=== PATIENT | female | born 1975 | race Caucasian/White ===

== ENCOUNTER 2022-02-11 12:21 | Inpatient (IN) | payer BC, SELFPAY ==
[2022-02-11] VITALS (12 sets, daily range): BP systolic 94–132; BP diastolic 59–95; PULSE 98–106; RESP 16–20; TEMP 36.5–36.7; O2SAT 96–99; BMI 25.7; BMI 26.2
--- NOTE | 2022-02-11 13:00 | ED_ITS ---
HPI - General Adult General Date Seen: 02/11/22 Chief complaint: Abdominal Pain Stated complaint: Distended abdomen Time Seen by Provider: 02/11/22 12:23 Source: patient History of Present Illness HPI narrative: Patient is a 46-year-old woman who presents with abdominal pain and distension which started about 5 days ago. She tells me that about 2 weeks ago, her daughter noticed that her eyes were a little bit yellow, and about 1 week ago as a result she stop drinking. She says that she has drunk alcohol fairly regularly for quite some time, but over the past 2 years she has been drinking much more heavily. She says that she has been able to stop drinking on her own, but has always restarted. She has never been through alcohol treatment, and does not consider that something that she would need. She developed pain on both sides of her abdomen which has been moderate in intensity and constant for the past 5 days or so. It feels worse when she lays down on her side, and also worse when she walks. She has not had any nausea, no vomiting. She has had some diarrhea which has been nonbloody. She thinks this is because she has stopped drinking. Her appetite has been decreased. She does not think she has had any fevers although she has felt hot. She has not felt short of breath although it is difficult to take a deep breath because her abdomen feels full. She has not noted any swelling in her legs currently although that has been a problem in the past. She has not taken anything for pain. She has noticed that her abdomen seems bloated and bulges out at the sides. This is never happened before. She does not smoke cigarettes and denies any other substance use. She has a history of anxiety, denies any other significant medical history. Related Data Home Medications Medication Instructions Recorded Confirmed No Known Home Medications 02/11/22 02/11/22 Allergies Allergy/AdvReac Type Severity Reaction Status Date / Time Penicillins Allergy Hives Verified 02/11/22 12:39 Review of Systems Status of ROS: Reports: 10 or more systems reviewed and unremarkable except as noted in History and below [facility] Social History Highest level of school completed/degree received: high school graduate Smoking Status: Former smoker Do you use any of these nicotine containing products: None Second hand tobacco smoke exposure: No How often do you have a drink containing alcohol: 4 or more times a week Alcohol type details: last drink 02/03/22 How many standard drinks containing alcohol do you have on a typical day: 5 or 6 How often do you have six or more drinks on one occasion: Weekly AUDIT-C Alcohol total score: 9 Non-prescribed substance use: denies use Caffeine: Yes (rare) service: No Exam Narrative: Exam Narrative: Vital signs as noted above. In general, an alert, nontoxic woman. She looks fatigued, she is lying on her side. Head: Normocephalic, atraumatic. Eyes: Pupils are equal reactive. Extraocular movements are full. Conjunctivae are obviously icteric. ENT: Mucous membranes are slightly dry. Neck: Supple without lymphadenopathy. Heart: Regular rate and rhythm. No murmur or rub. Lungs: Clear bilaterally. No increased work of breathing, crackles or wheezes. Abdomen: Soft and mildly distended, mild diffuse tenderness without rebound guarding or rigidity. Liver edge palpable at mid abdomen. Ascites. Extremities: Well perfused. No edema. No calf tenderness. Pulses intact. Neurologic: Patient is alert and oriented to person and place. Speech is fluent. Face is symmetric. Moves all extremities equally. Affect: Normal. Skin: Warm and dry. Well perfused. Jaundiced. Const: Vital Signs, click to edit/add: Vital Signs - 24 hr 02/11/22 12:33 02/11/22 13:00 02/11/22 13:30 Temperature 97.7 F Pulse Rate [Left P ulse Oximeter] 99 101 H 100 Respiratory Rate 20 20 20 Blood Pressure [Ri ght Upper Arm] 125/81 125/87 117/88 Pulse Oximetry 98 98 98 02/11/22 14:30 02/11/22 15:00 02/11/22 15:30 Temperature Pulse Rate [Left P ulse Oximeter] 98 98 98 Respiratory Rate 20 20 20 Blood Pressure [Ri ght Upper Arm] 129/95 H 120/80 132/92 H Pulse Oximetry 97 98 98 02/11/22 16:00 Temperature Pulse Rate [Left P ulse Oximeter] 98 Respiratory Rate 20 Blood Pressure [Ri ght Upper Arm] 110/76 Pulse Oximetry 98 Documenting provider has reviewed patient's vital signs: yes Course Course Hospital Course: Examination with the bedside ultrasound confirms an enlarged liver, ascites. I discussed with her that these are likely signs that her liver is not tolerating her alcohol use, and that with continued drinking her liver will most certainly fail entirely. At this time, she verbalizes that she does not plan to drink anymore. Labs are pending, IV will be established. She does have some mild abdominal tenderness. She is afebrile here. Consideration for spontaneous bacterial peritonitis verses ascites. Given her alcohol use, liver failure is likely secondary to alcohol. No history to suggest Tylenol or other medication cause. Liver is significantly enlarged on ultrasound. Depending on labs, will consider other possible causes such as hepatitis, biliary obstruction, etc.. She had a single dose of Toradol, and felt improved. L normal saline. Lactate returned elevated at 3.7, white blood cell count mildly elevated at 11.4. INR 1.23. Platelets normal. Hemoglobin normal. LFTs markedly abnormal with bilirubin of 8.9, AST 185, ALT 43 consistent with likely hepatocellular damage due to alcohol, though consideration can be given to imaging of an inpatient to rule out other causes. Alk-phos is elevated at 460. Lipase is normal. CRP mildly elevated at 2.9. BNP minimally elevated at 282. UA is negative aside from 2+ bilirubin. Blood alcohol is negative. I did speak with general surgery about trying to do a paracentesis to get ascitic fluid for culture prior to starting antibiotics, however review with ultrasound does not show a large enough pocket of fluid to safely obtain fluid. Therefore, we will go ahead and start antibiotics and see how she does clinically. I did obtain blood cultures. Antibiotics will be started on the inpatient floor. Vital Signs Vital signs: Initial Vital Signs Temperature 97.7 F 02/11/22 12:33 Temperature Source Temporal Artery Scan 02/11/22 12:33 Pulse Rate 99 02/11/22 12:33 Pulse Rhythm 02/11/22 12:33 Respiratory Rate 20 02/11/22 12:33 Blood Pressure 125/81 02/11/22 12:33 Blood Pressure Mean 95 02/11/22 12:33 Blood Pressure Position Supine 02/11/22 12:33 Pulse Oximetry 98 02/11/22 12:33 Oxygen Delivery Method 02/11/22 12:33 Vital Signs Temperature 97.7 F 02/11/22 12:33 Pulse Rate 99 02/11/22 12:33 Respiratory Rate 20 02/11/22 12:33 Blood Pressure 125/81 02/11/22 12:33 Pulse Oximetry 98 02/11/22 12:33 Temperature 98.1 F 02/11/22 16:54 Pulse Rate 105 H 02/11/22 16:54 Respiratory Rate 16 02/11/22 16:54 Blood Pressure 108/88 02/11/22 16:54 Pulse Oximetry 99 02/11/22 16:54 Medical Decision Making Lab Data Labs: Lab Results 02/11/22 02/11/22 02/11/22 Range/Units 13:20 13:20 13:20 WBC 11.41 H (4.50-11.00) K/uL RBC 3.77 L (4.00-5.20) m/uL Hgb 13.2 (12.0-16.0) gm/dL Hct 39.8 (33.0-51.0) % MCV 106 H (80-100) fL MCH 35 H (26-34) pg MCHC 33 (32-36) gm/dL RDW Coeff of Nicolas 18.4 H (11.5-15.5) % Plt Count 190 (140-440) K/uL Neut % (Auto) 81.1 H (42.0-72.0) % Lymph % (Auto) 8.9 L (20-44) % [place] % (Auto) 9.1 (0.0-11.0) % Eos % (Auto) 0.4 (0.0-7.0) % Baso % (Auto) 0.2 (0.0-3.0) % Neut # (Auto) 9.30 H (1.7-7.0) K/uL Lymph # (Auto) 1.00 (0.90-2.90) K/uL [place] # (Auto) 1.00 H (0.00-0.90) K/UL Eos # (Auto) 0.00 (0.00-0.50) K/uL Baso # (Auto) 0.00 (0.00-0.30) K/uL Abs Immat Gran (auto) 0.03 (0.00-0.30) K/uL INR 1.23 H (0.91-1.10) APTT 35 H (23-33) Seconds Sodium 136 (135-149) mmol/L Potassium 3.2 L (3.6-5.1) mmol/L Chloride 96 (96-114) mmol/L Carbon Dioxide 29 (20-32) mmol/L BUN 3 L (5-24) mg/dL Creatinine 0.5 (0.5-1.5) mg/dL Estimated Creat Clear 117.54 Estimated GFR 118 ml/min Glucose 105 (60-115) mg/dL Lactate (0.5-1.9) mmol/L Calcium 8.7 (8.4-10.6) mg/dL Total Bilirubin 8.9 H (0.1-1.5) mg/dL Direct Bilirubin 7.4 H (0.0-0.5) mg/dL AST 185 H (12-35) U/L ALT 43 H (4-35) U/L Alkaline Phosphatase 460 H (40-150) U/L C-Reactive Protein 2.9 H (0.5-1.0) mg/dL NT-Pro-B Natriuret Pep 282 H (0-125) PG/mL Total Protein 7.1 (6.0-8.3) g/dL Albumin 3.5 (3.3-5.0) g/dL Lipase 114 (23-300) U/L Urine Color (Yellow) Urine Appearance (Clear) Urine pH (5.0-8.5) Ur Specific [place] (1.000-1.030) Urine Protein (Negative) Urine Glucose (UA) (Negative) Urine Ketones (Negative) Urine Blood (Negative) Urine Nitrite (Negative) Urine Bilirubin (Negative) Urine Urobilinogen (0.2-1.0) Ur Leukocyte Esterase (Negative) Urine RBC (0-2) Urine WBC (0-5) Ur Squamous Epith Cells (None-Few) Amorphous Sediment (None) Other Sediment (None) Urine Bacteria (None) Urine Mucus (None) Ethyl Alcohol < 0.01 L (0.01-0.03) % SARS-CoV-2 (PCR) (Negative) Influenza Type A (PCR) (Negative) Influenza Type B (PCR) (Negative) RSV (PCR) (Negative) 02/11/22 02/11/22 02/11/22 Range/Units 13:20 13:35 14:00 WBC (4.50-11.00) K/uL RBC (4.00-5.20) m/uL Hgb (12.0-16.0) gm/dL Hct (33.0-51.0) % MCV (80-100) fL MCH (26-34) pg MCHC (32-36) gm/dL RDW Coeff of Nicolas (11.5-15.5) % Plt Count (140-440) K/uL Neut % (Auto) (42.0-72.0) % Lymph % (Auto) (20-44) % [place] % (Auto) (0.0-11.0) % Eos % (Auto) (0.0-7.0) % Baso % (Auto) (0.0-3.0) % Neut # (Auto) (1.7-7.0) K/uL Lymph # (Auto) (0.90-2.90) K/uL [place] # (Auto) (0.00-0.90) K/UL Eos # (Auto) (0.00-0.50) K/uL Baso # (Auto) (0.00-0.30) K/uL Abs Immat Gran (auto) (0.00-0.30) K/uL INR (0.91-1.10) APTT (23-33) Seconds Sodium (135-149) mmol/L Potassium (3.6-5.1) mmol/L Chloride (96-114) mmol/L Carbon Dioxide (20-32) mmol/L BUN (5-24) mg/dL Creatinine (0.5-1.5) mg/dL Estimated Creat Clear Estimated GFR ml/min Glucose (60-115) mg/dL Lactate 3.7 H (0.5-1.9) mmol/L Calcium (8.4-10.6) mg/dL Total Bilirubin (0.1-1.5) mg/dL Direct Bilirubin (0.0-0.5) mg/dL AST (12-35) U/L ALT (4-35) U/L Alkaline Phosphatase (40-150) U/L C-Reactive Protein (0.5-1.0) mg/dL NT-Pro-B Natriuret Pep (0-125) PG/mL Total Protein (6.0-8.3) g/dL Albumin (3.3-5.0) g/dL Lipase (23-300) U/L Urine Color Yellow (Yellow) Urine Appearance Clear (Clear) Urine pH 6.0 (5.0-8.5) Ur Specific [place] 1.010 (1.000-1.030) Urine Protein Negative (Negative) Urine Glucose (UA) Negative (Negative) Urine Ketones Negative (Negative) Urine Blood Negative (Negative) Urine Nitrite Negative (Negative) Urine Bilirubin 2+ A (Negative) Urine Urobilinogen 0.2 (0.2-1.0) Ur Leukocyte Esterase Negative (Negative) Urine RBC 0-2 (0-2) Urine WBC 0-2 (0-5) Ur Squamous Epith Cells Few (None-Few) Amorphous Sediment (None) Other Sediment (None) Urine Bacteria Few A (None) Urine Mucus (None) Ethyl Alcohol (0.01-0.03) % SARS-CoV-2 (PCR) Negative SARS-CoV-2 (Negative) Influenza Type A (PCR) Negative PCR FLU A (Negative) Influenza Type B (PCR) Negative PCR FLU B (Negative) RSV (PCR) Negative PCR RSV (Negative) Discharge Plan Discharge Clinical Impression: Alcoholic liver damage Patient Disposition: Admitted As Inpatient Discharge Location: [facility] Condition: Stable
[2022-02-11 13:32] LABS: Basophils Percent Auto 0.2 % (0.0-3.0); Eosinophils Percent Auto 0.4 % (0.0-7.0); Hematocrit 39.8 % (33.0-51.0); Hemoglobin* 13.2 gm/dL (12.0-16.0); Immature Granulocytes Abs Auto 0.03 K/uL (0.00-0.30); Lymphocytes Percent Auto 8.9 % (20-44); Mean Corpuscular HGB Conc 33 gm/dL (32-36); Mean Corpuscular Hemoglobin 35 pg (26-34); Mean Corpuscular Volume 106 fL (80-100); Monocytes Percent Auto 9.1 % (0.0-11.0); Neutrophils Percent Auto 81.1 % (42.0-72.0); Platelet Count* 190 K/uL (140-440); RDW Coefficient of Variation % 18.4 % (11.5-15.5); Red Blood Count 3.77 m/uL (4.00-5.20); White Blood Count* 11.41 K/uL (4.50-11.00)
[2022-02-11 13:33] LABS: Lactate* 3.7 mmol/L (0.5-1.9)
[2022-02-11 13:45] LABS: Slide Review Reflex No
[2022-02-11] MEDS: KETOROLAC 15 MG/ML inj IVP (13:47)
[2022-02-11 13:49] LABS: Albumin* 3.5 g/dL (3.3-5.0); Chloride* 96 mmol/L (96-114)
[2022-02-11 13:50] LABS: Potassium* 3.2 mmol/L (3.6-5.1); Sodium* 136 mmol/L (135-149)
[2022-02-11 13:51] LABS: INR 1.23 (0.91-1.10)
[2022-02-11 13:52] LABS: Alkaline Phosphatase* 460 U/L (40-150); Aspartate Amino Transferase* 185 U/L (12-35); Bilirubin Direct* 7.4 mg/dL (0.0-0.5); Bilirubin Total* 8.9 mg/dL (0.1-1.5); Carbon Dioxide* 29 mmol/L (20-32); Creatinine* 0.5 mg/dL (0.5-1.5); Est. Creatinine Clearance* 117.54; Estimated Glomerular Filt Rate 118 ml/min; Partial Thromboplastin Time* 35 Seconds (23-33); Total Protein* 7.1 g/dL (6.0-8.3)
[2022-02-11 13:53] LABS: Alanine Aminotransferase* 43 U/L (4-35); Blood Urea Nitrogen* 3 mg/dL (5-24); Calcium* 8.7 mg/dL (8.4-10.6); Glucose* 105 mg/dL (60-115); Lipase* 114 U/L (23-300)
[2022-02-11 13:54] LABS: Ethanol* < 0.01 % (0.01-0.03)
[2022-02-11 13:55] LABS: C Reactive Protein* 2.9 mg/dL (0.5-1.0)
[2022-02-11 14:01] LABS: NT Pro B Type NatriureticPept* 282 PG/mL (0-125)
[2022-02-11 14:09] LABS: Appearance Urine Clear (Clear); Bilirubin Urine 2+ (Negative); Blood Urine Negative (Negative); Color Urine Yellow (Yellow); Glucose Urine Negative (Negative); Ketones Urine Negative (Negative); Leukocyte Esterase Urine Negative (Negative); Nitrite Urine Negative (Negative); Protein Urine Negative (Negative); Urobilinogen Urine 0.2 (0.2-1.0)
[2022-02-11] MEDS: 0.9 % SODIUM CHLORIDE 1000 ml 1,000 ML IV (14:22)
[2022-02-11 14:37] LABS: RBC Urine 0-2 (0-2)
[2022-02-11 14:38] LABS: Bacteria Urine Few; Squamous Epithelial Cell Urine Few (None-Few); WBC Urine 0-2 (0-5)
[2022-02-11 14:59] LABS: PCR FLU A Negative PCR FLU A (Negative); PCR FLU B Negative PCR FLU B (Negative); PCR RSV Negative PCR RSV (Negative)
[2022-02-11 15:01] LABS: SARS PCR* Negative SARS-CoV-2 (Negative)
--- NOTE | 2022-02-11 15:04 | P.GSCN_ITS ---
History of Present Illness Consult details Consult date: 02/11/22 Narrative: Patient is a 46-year-old female, who does not go to the doctors regularly, who presented to the emergency department with abdominal pain and increasing distension. She does have a heavy alcohol history, which per patient has increased in amount over the last 2 years. About 1 week earlier her daughter noted that her thighs were starting to become yellowed. Over the last 5 days she has had some increasing distention in her abdomen and is now reporting some diffuse mild tenderness. She stopped drinking 1 week earlier because of these symptoms. She denies any fevers or chills. She is reporting some mild diarrhea. She has never had symptoms like this before and denies ever having to undergo a paracentesis. Her abdominal surgical history is positive for bilateral tubal ligation and rectocele repair. Review of Systems Status of ROS: Reports: 6 or more systems reviewed and unremarkable except as noted in History and below [facility] Social History Smoking Status: Former smoker Do you use any of these nicotine containing products: None Second hand tobacco smoke exposure: No How often do you have a drink containing alcohol: 4 or more times a week How many standard drinks containing alcohol do you have on a typical day: 5 or 6 How often do you have six or more drinks on one occasion: Weekly AUDIT-C Alcohol total score: 9 Non-prescribed substance use: denies use Meds Home Medications and Allergies Home Medications Medication Instructions Recorded Confirmed Type No Known Home Medications 02/11/22 02/11/22 History Allergies Allergy/AdvReac Type Severity Reaction Status Date / Time Penicillins Allergy Hives Verified 02/11/22 12:39 Exam Narrative: Exam Narrative: General: Alert and oriented, no acute distress. Is lying in a hospital bed in moderate discomfort, but nontoxic in appearance. HEENT: Scleral icterus Respiratory: Equal breath rise bilaterally, maintained on room air CV: Regular rhythm and rate, well perfused Abdomen: Moderate distention with positive fluid shift. Liver edge is easily palpated in right lower quadrant and enlarged. Skin: Jaundiced Const: Vital Signs, click to edit/add: Vital Signs - 24 hr 02/11/22 12:33 Temperature 97.7 F Pulse Rate [Left P ulse Oximeter] 99 Respiratory Rate 20 Blood Pressure [Ri ght Upper Arm] 125/81 Pulse Oximetry 98 Results Labs Labs: Abnormal lab results 02/11/22 02/11/22 02/11/22 Range/Units 13:20 13:20 13:20 WBC 11.41 H (4.50-11.00) K/uL RBC 3.77 L (4.00-5.20) m/uL MCV 106 H (80-100) fL MCH 35 H (26-34) pg RDW Coeff of Nicolas 18.4 H (11.5-15.5) % Neut % (Auto) 81.1 H (42.0-72.0) % Lymph % (Auto) 8.9 L (20-44) % Neut # (Auto) 9.30 H (1.7-7.0) K/uL [place] # (Auto) 1.00 H (0.00-0.90) K/UL INR 1.23 H (0.91-1.10) APTT 35 H (23-33) Seconds Potassium 3.2 L (3.6-5.1) mmol/L BUN 3 L (5-24) mg/dL Lactate (0.5-1.9) mmol/L Total Bilirubin 8.9 H (0.1-1.5) mg/dL Direct Bilirubin 7.4 H (0.0-0.5) mg/dL AST 185 H (12-35) U/L ALT 43 H (4-35) U/L Alkaline Phosphatase 460 H (40-150) U/L C-Reactive Protein 2.9 H (0.5-1.0) mg/dL NT-Pro-B Natriuret Pep 282 H (0-125) PG/mL Urine Bilirubin (Negative) Urine Bacteria (None) Ethyl Alcohol < 0.01 L (0.01-0.03) % 02/11/22 02/11/22 Range/Units 13:20 14:00 WBC (4.50-11.00) K/uL RBC (4.00-5.20) m/uL MCV (80-100) fL MCH (26-34) pg RDW Coeff of [place] (11.5-15.5) % Neut % (Auto) (42.0-72.0) % Lymph % (Auto) (20-44) % Neut # (Auto) (1.7-7.0) K/uL [place] # (Auto) (0.00-0.90) K/UL INR (0.91-1.10) APTT (23-33) Seconds Potassium (3.6-5.1) mmol/L BUN (5-24) mg/dL Lactate 3.7 H (0.5-1.9) mmol/L Total Bilirubin (0.1-1.5) mg/dL Direct Bilirubin (0.0-0.5) mg/dL AST (12-35) U/L ALT (4-35) U/L Alkaline Phosphatase (40-150) U/L C-Reactive Protein (0.5-1.0) mg/dL NT-Pro-B Natriuret Pep (0-125) PG/mL Urine Bilirubin 2+ A (Negative) Urine Bacteria Few A (None) Ethyl Alcohol (0.01-0.03) % Diabetes panel 02/11/22 Range/Units 13:20 Sodium 136 (135-149) mmol/L Potassium 3.2 L (3.6-5.1) mmol/L Chloride 96 (96-114) mmol/L Carbon Dioxide 29 (20-32) mmol/L BUN 3 L (5-24) mg/dL Creatinine 0.5 (0.5-1.5) mg/dL Glucose 105 (60-115) mg/dL Calcium 8.7 (8.4-10.6) mg/dL AST 185 H (12-35) U/L ALT 43 H (4-35) U/L Alkaline Phosphatase 460 H (40-150) U/L Total Protein 7.1 (6.0-8.3) g/dL Albumin 3.5 (3.3-5.0) g/dL Calcium panel 02/11/22 Range/Units 13:20 Calcium 8.7 (8.4-10.6) mg/dL Albumin 3.5 (3.3-5.0) g/dL Pituitary panel 02/11/22 Range/Units 13:20 Sodium 136 (135-149) mmol/L Potassium 3.2 L (3.6-5.1) mmol/L Chloride 96 (96-114) mmol/L Carbon Dioxide 29 (20-32) mmol/L BUN 3 L (5-24) mg/dL Creatinine 0.5 (0.5-1.5) mg/dL Glucose 105 (60-115) mg/dL Calcium 8.7 (8.4-10.6) mg/dL Adrenal panel 02/11/22 Range/Units 13:20 Sodium 136 (135-149) mmol/L Potassium 3.2 L (3.6-5.1) mmol/L Chloride 96 (96-114) mmol/L Carbon Dioxide 29 (20-32) mmol/L BUN 3 L (5-24) mg/dL Creatinine 0.5 (0.5-1.5) mg/dL Glucose 105 (60-115) mg/dL Calcium 8.7 (8.4-10.6) mg/dL Total Bilirubin 8.9 H (0.1-1.5) mg/dL AST 185 H (12-35) U/L ALT 43 H (4-35) U/L Alkaline Phosphatase 460 H (40-150) U/L Total Protein 7.1 (6.0-8.3) g/dL Albumin 3.5 (3.3-5.0) g/dL All other labs normal. Assessment and Plan Assessment and plan (1) Ascites: Status: Acute Plan Patient is a 46-year-old female, with history of heavy alcohol use, who presented to the emergency department with new onset ascites. This is likely secondary to liver disease. I was asked to evaluate the patient for possible paracentesis. Her labs only demonstrated mild elevation in INR of 1.2, a P TT 35 seconds Her platelets are 190. Hemoglobin is 13.2. Her LFTs are significantly elevated (total bilirubin 8.9/direct bilirubin 7.4/AST 185/ALT 43/alkaline phosphatase 460) increasing the likelihood that this is secondary to liver disease. Ultrasound was called to help assist with possible paracentesis. During evaluation, there was no adequate window that was visualized. The patient was deemed too high risk at this time to undergo the procedure due to the high likelihood of injury to surrounding structures. Please call the on-call surgeon for any additional consultations, questions or concerns
--- NOTE | 2022-02-11 15:58 | ED.NURSE ---
Dr Whitfield at bedside.
--- NOTE | 2022-02-11 16:10 | PM.IMHP1 ---
Hospitalist- H&P: HPI History of Present Illness Date Seen: 02/11/22 Chief complaint: Distended abdomen Narrative: Mabel Wagner is a 46 year old female who presented to the ED with abdominal pain and distension. For the past 5 days, she has noted pain on both side of her abdomen. Pain is better with positional changes. Minimal relief with Advil. No fevers, no recent travel or illness. Patient has a history of alcohol overuse; quit drinking 1-2 weeks ago after her daughter noted that patient's skin was becoming jaundiced. ER course and findings: - total bilirubin of 8.9, direct bilirubin of 7.4. AST, ALT and alk-phos also all elevated - White blood count 11.4, platelets 190, MCV 106 - Sodium normal, potassium low at 3.2. INR 1.23 - general surgery consulted for paracentesis; unfortunately, patient did not have a pocket large enough for tap Mabel is typically healthy, takes no medications regularly. Does not regularly followup with a PCP. She is a . No family history of liver disease. Father has history of CAD. Lives in [place] with and 2 of 3 children. Works for [employer]. Nonsmoker, recently quit drinking - was previously drinking 5-6 drinks per day. Review of Systems Status of ROS: Reports: 10 or more systems reviewed and unremarkable except as noted in History and below Narrative: Specifically denies chest pain or dyspnea. Also denies any skin changes or itching. [facility] Social History Smoking Status: Former smoker Do you use any of these nicotine containing products: None Second hand tobacco smoke exposure: No How often do you have a drink containing alcohol: 4 or more times a week How many standard drinks containing alcohol do you have on a typical day: 5 or 6 How often do you have six or more drinks on one occasion: Weekly AUDIT-C Alcohol total score: 9 Non-prescribed substance use: denies use Meds Home Medications and Allergies Home Medications Medication Instructions Recorded Confirmed Type No Known Home Medications 02/11/22 02/11/22 History Allergies Allergy/AdvReac Type Severity Reaction Status Date / Time Penicillins Allergy Hives Verified 02/11/22 12:39 Exam Narrative: Exam Narrative: GEN: Alert and oriented, answering questions appropriately HEENT: Normal external ears, EOMIs bilaterally, + scleral icterus CV: RRR, No concerning murmurs, rubs, or gallops R: LCTA bilaterally without concerning wheezing, rales, or rhonchi. Air movement adequate Ab: distended, + hepatomegaly, + fluid wave Ext: wwp, no concerning edema Skin: + jaundice noted, no other concerning skin lesions or rashes on exposed skin Neuro: Nonfocal, no resting tremor Psych: Appropriate Const: Vital Signs, click to edit/add: Vital Signs - 24 hr 02/11/22 12:33 02/11/22 13:00 02/11/22 13:30 Temperature 97.7 F Pulse Rate [Left P ulse Oximeter] 99 101 H 100 Respiratory Rate 20 20 20 Blood Pressure [Ri ght Upper Arm] 125/81 125/87 117/88 Pulse Oximetry 98 98 98 02/11/22 14:30 02/11/22 15:00 02/11/22 15:30 Temperature Pulse Rate [Left P ulse Oximeter] 98 98 98 Respiratory Rate 20 20 20 Blood Pressure [Ri ght Upper Arm] 129/95 H 120/80 132/92 H Pulse Oximetry 97 98 98 Hospitalist - H&P: Result Labs Labs: Short CBC 02/11/22 Range/Units 13:20 WBC 11.41 H (4.50-11.00) K/uL Hgb 13.2 (12.0-16.0) gm/dL Hct 39.8 (33.0-51.0) % Plt Count 190 (140-440) K/uL BMP 02/11/22 13:20 Sodium 136 Potassium 3.2 L Chloride 96 Carbon Dioxide 29 BUN 3 L Creatinine 0.5 Glucose 105 Calcium 8.7 Liver Function 02/11/22 Range/Units 13:20 Total Bilirubin 8.9 H (0.1-1.5) mg/dL Direct Bilirubin 7.4 H (0.0-0.5) mg/dL AST 185 H (12-35) U/L ALT 43 H (4-35) U/L Alkaline Phosphatase 460 H (40-150) U/L Albumin 3.5 (3.3-5.0) g/dL Urine 02/11/22 Range/Units 14:00 Urine Color Yellow (Yellow) Urine Appearance Clear (Clear) Urine pH 6.0 (5.0-8.5) Ur Specific [place] 1.010 (1.000-1.030) Urine Protein Negative (Negative) Urine Glucose (UA) Negative (Negative) Assessment and Plan Assessment and plan (1) Ascites: Status: Acute (2) Elevated bilirubin: Status: Acute (3) Alcoholic liver damage: Status: Acute (4) Hypokalemia: Status: Acute (5) Elevated MCV: Status: Acute Plan 46-year-old female with abdominal pain and ascites in the setting of acute liver disease, presumably secondary to alcohol overuse. 1. Abdominal pain: Potentially secondary to new onset ascites, SBP also a possibility. Unfortunately, no fluid pocket noted for paracentesis in the ER. Empirically treat with ceftriaxone (patient has has history of rash after taking PCN in the past), blood cultures pending. 2. New onset liver failure: Patient understands the need for permanent alcohol cessation. MELD score is 18. Other sequela of alcohol overuse includes elevated MCV. Add spironolactone given abdominal distension, formal abdominal ultrasound has been ordered. Will need close follow-up with GI as an outpatient. 3. Hypokalemia, mild: Anticipate this will improve with spironolactone and p.o. intake. 4. Prophylaxis: SCDs and ambulation. 5. Patient requests full code status.
--- NOTE | 2022-02-11 16:31 | W.PC.EDHO ---
Primary Language: Preferred Language: Orientation Status: [X] Alert & Oriented [] Slight Confusion [] Known Dx Dementia Transfers By: [X] Assist of 1-Independent [] Assist of 2 [] Lift Active Medications Discontinued Medications Generic Name Dose Route Start Last Admin Trade Name Amada PRN Reason Stop Dose Admin Sodium Chloride 1,000 mls @ 1,000 mls/hr 02/11/22 14:00 02/11/22 15:43 0.9 % Sodium Chloride 1000 Ml IV 02/11/22 14:59 Infused .Q1H BRANDIE Infusion Ketorolac Tromethamine 15 mg 02/11/22 12:55 02/11/22 13:47 Ketorolac 15 Mg/Ml Inj IVP 02/11/22 12:56 15 mg ONCE ONE Administration Description of Symptoms ED Triage Present Problem Abd distention, started on Saturday. Pain mostly on Description the sides. Hx of elevated liver labs. Daughter notices eyes were yellowing two weeks ago. Had a couple of alschol drinks per day up until one week ago. ED Triage Date of Onset of 02/06/22 Symptoms Female History Date of last menstrual period 12/03/21 Patient No Patient No: tubes tied Pain Pain Description [Abdomen] Tightness Pain Description [Abdomen] Tightness Pain Intensity [Abdomen] 10 Pain Intensity [Abdomen] 10 Pain Intensity 7 Pain Intensity 7 Pain Intensity 8 Pain Intensity 10 Pain Intensity 7 Pain Intensity 7 Pain Scale Used [Abdomen] Numeric (1 - 10) Pain Scale Used [Abdomen] Numeric (1 - 10) Pain Scale Used Numeric (1 - 10) Pain Scale Used Numeric (1 - 10) Pain Scale Used Numeric (1 - 10) Pain Scale Used Numeric (1 - 10) Pain Scale Used Numeric (1 - 10) Pain Scale Used Numeric (1 - 10) IV Insertion/Site Date of IV Line Insertion [ 02/11/22 Right Antecubital] Oxygen Administration Pulse Oximetry 98 Pulse Oximetry 98 Pulse Oximetry 97 Pulse Oximetry 98 Pulse Oximetry 98 Pulse Oximetry 98 Oxygen Delivery Method Room Air Oxygen Delivery Method Room Air Oxygen Delivery Method Room Air Oxygen Delivery Method Room Air Oxygen Delivery Method Room Air Oxygen Delivery Method Room Air
--- NOTE | 2022-02-11 16:40 | ED.NURSE ---
Report to [facility]
--- NOTE | 2022-02-11 16:41 | ED.NURSE ---
Report to [facility] Boykin
[2022-02-11] MEDS: cefTRIAXone 2 GM in 0.9 % SODIUM CHLORIDE Mini-bag 100 ML IVPB (19:02)
[2022-02-11] MEDS: OXYCODONE 5 MG TABLET PO ×2 (19:02→23:11)
[2022-02-11] MEDS: POTASSIUM BICARB 25 MEQ EFFERVESCENT TAB PO ×3 (19:05→23:10)
--- NOTE | 2022-02-11 19:19 | PC.NURSE ---
Patient admitted to [facility]. Pleasant and cooperative. Afebrile. Rating pain in abdomen 7/10 and PRN Oxycodone given x1. Tolerating regular diet with no nausea. Up independently in room.
[2022-02-11] MEDS: MORPHINE 4 MG/ML INJ 2 MG IVP (21:15)
[2022-02-12] VITALS (7 sets, daily range): BP systolic 93–102; BP diastolic 74–82; PULSE 95–103; RESP 16–20; TEMP 36.2–36.8; O2SAT 96–98
--- NOTE | 2022-02-12 02:11 | PC.NURSE ---
Shift note 23-: Pt up ad fern in room, rating abd pain 4-6/10 utilizing PRN MS and Oxycodone also w/ side positioning. Abd softly distended tolerating food/fluids w/o nausea, afebrile.
[2022-02-12] MEDS: MORPHINE 4 MG/ML INJ 2 MG IVP (02:34)
[2022-02-12 07:08] LABS: Basophils Absolute Auto 0.01 K/uL (0.00-0.30); Basophils Percent Auto 0.1 % (0.0-3.0); Eosinophils Absolute Auto 0.08 K/uL (0.00-0.50); Eosinophils Percent Auto 0.9 % (0.0-7.0); Hemoglobin* 11.2 gm/dL (12.0-16.0); Immature Granulocytes Abs Auto 0.08 K/uL (0.00-0.30); Lymphocytes Percent Auto 12.3 % (20-44); Mean Corpuscular HGB Conc 33 gm/dL (32-36); Mean Corpuscular Hemoglobin 35 pg (26-34); Mean Corpuscular Volume 107 fL (80-100); Monocytes Percent Auto 10.4 % (0.0-11.0); Neutrophils Percent Auto 75.4 % (42.0-72.0); Platelet Count* 148 K/uL (140-440); RDW Coefficient of Variation % 18.2 % (11.5-15.5); Red Blood Count 3.17 m/uL (4.00-5.20); White Blood Count* 8.97 K/uL (4.50-11.00)
[2022-02-12 07:13] LABS: Slide Review Reflex No
[2022-02-12 07:22] LABS: Albumin* 2.7 g/dL (3.3-5.0); Chloride* 100 mmol/L (96-114)
[2022-02-12 07:23] LABS: Potassium* 3.9 mmol/L (3.6-5.1); Sodium* 133 mmol/L (135-149)
[2022-02-12 07:25] LABS: Alanine Aminotransferase* 34 U/L (4-35); Alkaline Phosphatase* 360 U/L (40-150); Aspartate Amino Transferase* 144 U/L (12-35); Blood Urea Nitrogen* 3 mg/dL (5-24); Carbon Dioxide* 30 mmol/L (20-32); Creatinine* 0.4 mg/dL (0.5-1.5); Est. Creatinine Clearance* 146.92; Estimated Glomerular Filt Rate 124 ml/min; Glucose* 80 mg/dL (60-115); Total Protein* 5.8 g/dL (6.0-8.3)
[2022-02-12 07:26] LABS: Calcium* 7.8 mg/dL (8.4-10.6); INR 1.31 (0.91-1.10); Prothrombin Time 16.7 Seconds
[2022-02-12] MEDS: OMEPRAZOLE 20 MG CAPSULE DR 40 MG PO (08:45)
[2022-02-12] MEDS: KETOROLAC 15 MG/ML inj IVP (08:45)
--- NOTE | 2022-02-12 09:49 | CRLHL7_ITS ---
For Patients: As a result of the Century Cures Act, medical imaging exams and procedure reports are released immediately into your electronic medical record. You may view this report before your referring provider. If you have questions, please contact your health care provider. INDICATION: Abnormal liver function tests. Comparison: None TECHNIQUE: Ultrasound examination of the right upper quadrant of the abdomen. FINDINGS: Hepatomegaly with the liver measuring 27 cm in maximum vertical dimension. Diffuse increase in echogenicity of the liver; rule out fatty infiltration. No pancreatic pathology. Distended gallbladder. Abdominal ascites. Nondilated common bile duct measuring 5 mm in diameter. The right kidney is measuring 10 x 5.4 x 4.1 cm without any obstructive uropathy or perinephric pathology. Proximal abdominal aorta is measuring 2.4 cm in diameter. IMPRESSION: 1. Hepatomegaly with diffuse fatty infiltration of the liver. 2. Abdominal ascites. 3. Distended gallbladder without any cholelithiasis. 4. Nondilated common bile duct measuring 5 mm in diameter. Dictated by Geoff Hercules MD @ 02/12/2022 10:41:04 AM (Electronically Signed)
[2022-02-12] MEDS: OXYCODONE 5 MG TABLET PO ×3 (11:09→21:28)
[2022-02-12] MEDS: SPIRONOLACTONE 25 MG TABLET PO (11:09)
--- NOTE | 2022-02-12 13:40 | NUTR.NU ---
RDN with MD consult related to liver failure. RDN visited with patient, and family present, whom agreed to receive diet education. Patient reported she follows a gluten-free, vegetarian diet. Diet education related to alcoholic liver failure was provided. Discussed including more vegetables and fruit, whole grains/starch, lean protein (fish, poultry, legumes, nuts/seeds), and healthy fats in diet. Also discussed limiting sodium intake to ~2,000 mg/day. Discussed the importance of increasing calorie and protein needs due to liver failure. Handout provided to support discussion. RDN's contact information provided and encouraged patient to call with questions. RDN to follow up as needed.
--- NOTE | 2022-02-12 18:18 | P.IMPN_ITS ---
Progress Note: A&P Assessment and plan (1) SBP (spontaneous bacterial peritonitis): Problem details: Suspected SBP secondary to alcohol use. No fluid pocket identified for diagnostic paracentesis. Status: Suspected Assessment and Plan: Continue empiric treatment with ceftriaxone 2 g daily. She has tolerated this well without rash despite reported allergy to penicillin. Blood cultures pending. No renal failure, but she is at risk for developing this due to possible SBP. Check renal function daily. BUN is less than 30 and Cr is 0.4. Will consider starting albumin infusion daily if tomorrow's billirubin remains greater than 4. (2) Alcoholic liver damage: Status: Acute Assessment and Plan: Discussed ETOH cessation with patient and encouraged going to AA and getting outpatient support, not trying to do this alone. Continue spironolactione. Outpatient GI consultation. (3) Elevated MCV: Status: Acute (4) Hypokalemia: Status: Acute Assessment and Plan: resolved. (5) Elevated bilirubin: Status: Acute Assessment and Plan: as above. (6) Ascites: Status: Acute Assessment and Plan: as above. Plan VTE prophylaxis with SCDs and ambulation. Subjective Time Seen by Provider: 09:20 Date Seen: 02/12/22 Interval history: Final is feeling a little bit better today. She continues to have abdominal pain, but the narcotics are helping. Exam Narrative: Exam Narrative: General: Somewhat anxious. Tearful when asking if the ascites might be a permanent condition. [Awake, alert, oriented x3.] [No pallor.] Jaundice and scleral icterus present. Oropharynx: Clear. Mucous membranes [moist]. Cardiovascular: [Regular rate and rhythm]. [No murmurs, gallops, or rubs]. Respiratory: [Clear to auscultation bilaterally. No wheezes or crackles]. Abdomen: Bowel sounds [present]. Distended, soft, umbilicus not bulging or abnormal, fluid wave present. Mild diffuse tenderness. No rebound tenderness or guarding. Extremities: [No] pedal edema. Const: Vital Signs, click to edit/add: Vital Signs - 24 hr 02/11/22 18:24 02/11/22 20:08 02/11/22 23:00 Temperature 98.1 F 98.1 F Pulse Rate [Right Pulse Oximeter] 105 H 106 H Respiratory Rate 16 18 18 Blood Pressure [Le ft Arm] 106/88 114/90 H Pulse Oximetry 99 96 99 02/12/22 03:00 02/12/22 07:00 02/12/22 11:00 Temperature 97.2 F L 98.1 F 97.8 F Pulse Rate [Right Pulse Oximeter] 98 98 98 Respiratory Rate 16 16 20 Blood Pressure [Le ft Arm] 99/74 97/81 102/82 Pulse Oximetry 96 97 98 02/12/22 15:00 Temperature 97.8 F Pulse Rate [Right Pulse Oximeter] 97 Respiratory Rate 16 Blood Pressure [Le ft Arm] 97/76 Pulse Oximetry 98 Labs Labs: Laboratory Results - last 24 hr 02/12/22 02/12/22 02/12/22 07:00 07:00 07:00 WBC 8.97 RBC 3.17 L Hgb 11.2 L Hct 34.0 MCV 107 H MCH 35 H MCHC 33 RDW Coeff of Nicolas 18.2 H Plt Count 148 Neut % (Auto) 75.4 H Lymph % (Auto) 12.3 L [place] % (Auto) 10.4 Eos % (Auto) 0.9 Baso % (Auto) 0.1 Neut # (Auto) 6.80 Lymph # (Auto) 1.10 [place] # (Auto) 0.90 Eos # (Auto) 0.08 Baso # (Auto) 0.01 Abs Immat Gran (auto) 0.08 INR 1.31 H Sodium 133 L Potassium 3.9 Chloride 100 Carbon Dioxide 30 BUN 3 L Creatinine 0.4 L Estimated Creat Clear 146.92 Estimated GFR 124 Glucose 80 Calcium 7.8 L Total Bilirubin 7.0 H AST 144 H ALT 34 Alkaline Phosphatase 360 H Total Protein 5.8 L Albumin 2.7 L Imaging US - abdomen: Attestation: I have reviewed the pertinent imaging results. Radiologist's impression: Ordering Physician: Nataly Cleaning M.D. Date of Service: 02/12/22 Procedure(s): US abdomen limited Accession Number(s): [id number] cc: Nataly Cleaning M.D.; Provider,Not a Local ~ For Patients: As a result of the Cures Act, medical imaging exams and procedure reports are released immediately into your electronic medical record. You may view this report before your referring provider. If you have questions, please contact your health care provider. INDICATION: Abnormal liver function tests. Comparison: None TECHNIQUE: Ultrasound examination of the right upper quadrant of the abdomen. FINDINGS: Hepatomegaly with the liver measuring 27 cm in maximum vertical dimension. Diffuse increase in echogenicity of the liver; rule out fatty infiltration. No pancreatic pathology. Distended gallbladder. Abdominal ascites. Nondilated common bile duct measuring 5 mm in diameter. The right kidney is measuring 10 x 5.4 x 4.1 cm without any obstructive uropathy or perinephric pathology. Proximal abdominal aorta is measuring 2.4 cm in diameter. IMPRESSION: 1. Hepatomegaly with diffuse fatty infiltration of the liver. 2. Abdominal ascites. 3. Distended gallbladder without any cholelithiasis. 4. Nondilated common bile duct measuring 5 mm in diameter. Dictated by Geoff Hercules MD @ 02/12/2022 10:41:04 AM (Electronically Signed)
[2022-02-12] MEDS: cefTRIAXone 2 GM in 0.9 % SODIUM CHLORIDE Mini-bag 100 ML IVPB (18:41)
--- NOTE | 2022-02-12 19:41 | PC.NURSE ---
shift [id number] pt primary c/o of abdominal pain this shift. See eMAR for treatment dose and times. Eating regular diet, tolerating fair, ambulating independently in room. Void small amounts of dark eriberto. calm and cooperative.
[2022-02-12] MEDS: SODIUM CHLORIDE 0.9 % (FLUSH) 10 ML SYRINGE 5 ML IVF (21:28)
[2022-02-12] MEDS: 0.9 % SODIUM CHLORIDE 250 ml IV (21:30)
[2022-02-13] VITALS (9 sets, daily range): BP systolic 101–119; BP diastolic 76–87; PULSE 100–114; RESP 16; TEMP 36.8–38.1; O2SAT 95–99
[2022-02-13] MEDS: OXYCODONE 5 MG TABLET PO ×5 (01:33→20:24)
--- NOTE | 2022-02-13 05:02 | PC.NURSE ---
Shift Note -: Pleasant and cooperative, VSS, BP remains low, Pt reports being asymptomatic, afebrile, BS active, LS clear. Abdomen remains distended, Pt frequently repositions to relieve pain and pressure. Pain well controlled with 5mg oxy q4h while awake. Pt slept for most of the night, up twice to BR. Urinary output has increased over the noc shift. Urine is straw colored and clear.
[2022-02-13] MEDS: OMEPRAZOLE 20 MG CAPSULE DR 40 MG PO (05:50)
[2022-02-13 06:57] LABS: Basophils Absolute Auto 0.02 K/uL (0.00-0.30); Basophils Percent Auto 0.2 % (0.0-3.0); Eosinophils Absolute Auto 0.09 K/uL (0.00-0.50); Hematocrit 34.1 % (33.0-51.0); Hemoglobin* 11.2 gm/dL (12.0-16.0); Lymphocytes Percent Auto 11.8 % (20-44); Mean Corpuscular HGB Conc 33 gm/dL (32-36); Mean Corpuscular Hemoglobin 35 pg (26-34); Mean Corpuscular Volume 108 fL (80-100); Monocytes Percent Auto 8.9 % (0.0-11.0); Platelet Count* 123 K/uL (140-440); RDW Coefficient of Variation % 17.5 % (11.5-15.5); Red Blood Count 3.16 m/uL (4.00-5.20); White Blood Count* 9.31 K/uL (4.50-11.00)
[2022-02-13 07:19] LABS: Albumin* 2.7 g/dL (3.3-5.0); Chloride* 100 mmol/L (96-114); Potassium* 3.5 mmol/L (3.6-5.1); Sodium* 135 mmol/L (135-149)
[2022-02-13 07:21] LABS: Creatinine* 0.4 mg/dL (0.5-1.5); Est. Creatinine Clearance* 146.92; Estimated Glomerular Filt Rate 124 ml/min
[2022-02-13 07:22] LABS: Alanine Aminotransferase* 33 U/L (4-35); Alkaline Phosphatase* 352 U/L (40-150); Aspartate Amino Transferase* 149 U/L (12-35); Bilirubin Total* 6.6 mg/dL (0.1-1.5); Blood Urea Nitrogen* 3 mg/dL (5-24); Calcium* 7.9 mg/dL (8.4-10.6); Carbon Dioxide* 29 mmol/L (20-32); Glucose* 82 mg/dL (60-115); Magnesium* 1.9 mg/dL (1.5-2.6); Total Protein* 5.7 g/dL (6.0-8.3)
[2022-02-13 07:33] LABS: Slide Review Reflex No
[2022-02-13] MEDS: SPIRONOLACTONE 25 MG TABLET PO (09:22)
[2022-02-13] MEDS: POTASSIUM BICARB 25 MEQ EFFERVESCENT TAB PO (09:22)
[2022-02-13] MEDS: ALBUMIN HUMAN 25% 100 ML VIAL IV (09:55)
[2022-02-13] MEDS: SODIUM CHLORIDE 0.9 % (FLUSH) 10 ML SYRINGE 5 ML IVF ×3 (09:57→20:25)
--- NOTE | 2022-02-13 10:28 | PM.IMPN1 ---
Progress Note: A&P Assessment and plan (1) SBP (spontaneous bacterial peritonitis): Problem details: Suspected SBP secondary to alcohol use. No fluid pocket identified for diagnostic paracentesis. Status: Suspected Assessment and Plan: Continue empiric treatment with ceftriaxone 2 g daily, today is day 3/5. Blood cultures pending. No renal failure, but she is at risk for developing this due to possible SBP. Check renal function daily. BUN is less than 30 and Cr is 0.4. Tbili greater than 4 today (day 3 of hospital stay), so I will give IV albumin today for renal protection in setting of SBP. (2) Alcoholic liver damage: Status: Acute Assessment and Plan: Continue spironolactione. Outpatient GI consultation. (3) Elevated MCV: Problem details: suspect secondary to EtOH. Status: Acute (4) Hypokalemia: Status: Acute Assessment and Plan: Replace carefully since she is on spironolactone. Recheck in am. Also check magnesium level today and replace if low. (5) Elevated bilirubin: Status: Acute Assessment and Plan: as above. (6) Ascites: Status: Acute Assessment and Plan: as above. (7) Alcohol withdrawal: Problem details: Possible Status: Suspected Assessment and Plan: Symptoms of clammy and weak today. Recheck covid antigen swab and start CIWA protocol. Plan VTE prophylaxis with SCDs and ambulation. Subjective Time Seen by Provider: 08:50 Date Seen: 02/13/22 Interval history: She tells me her abdominal pain continues to improve, although she was continuously rubbing her LUQ/flank under her ribs while I spoke with her. She notes feeling weak and clammy this morning, which is new. Exam Narrative: Exam Narrative: General: No acute distress. Awake, alert, oriented x3. No pallor. Jaundice and scleral icterus present. Oropharynx: Clear. Mucous membranes moist. Cardiovascular: Regular rate and rhythm. No murmurs, gallops, or rubs. Respiratory: Clear to auscultation bilaterally. No wheezes or crackles. Abdomen: Bowel sounds present. Distended, soft, umbilicus not bulging or abnormal, fluid wave present. Mild diffuse tenderness. No rebound tenderness or guarding. Const: Vital Signs, click to edit/add: Vital Signs - 24 hr 02/12/22 11:00 02/12/22 15:00 02/12/22 20:11 Temperature 97.8 F 97.8 F 98.1 F Pulse Rate [Right Pulse Oximeter] 98 97 103 H Respiratory Rate 20 16 20 Blood Pressure [Le ft Arm] 102/82 97/76 93/76 Pulse Oximetry 98 98 97 02/12/22 20:54 02/12/22 23:00 02/13/22 03:00 Temperature 98.3 F Pulse Rate [Right Pulse Oximeter] 103 H 95 Respiratory Rate 20 16 16 Blood Pressure [Le ft Arm] 97/79 Pulse Oximetry 96 Labs Labs: Laboratory Results - last 24 hr 02/13/22 02/13/22 06:42 06:42 WBC 9.31 RBC 3.16 L Hgb 11.2 L Hct 34.1 MCV 108 H MCH 35 H MCHC 33 RDW Coeff of Nicolas 17.5 H Plt Count 123 L Neut % (Auto) 77.0 H Lymph % (Auto) 11.8 L Collin % (Auto) 8.9 Eos % (Auto) 1.0 Baso % (Auto) 0.2 Neut # (Auto) 7.20 H Lymph # (Auto) 1.10 Collin # (Auto) 0.80 Eos # (Auto) 0.09 Baso # (Auto) 0.02 Abs Immat Gran (auto) 0.10 Sodium 135 Potassium 3.5 L Chloride 100 Carbon Dioxide 29 BUN 3 L Creatinine 0.4 L Estimated Creat Clear 146.92 Estimated GFR 124 Glucose 82 Calcium 7.9 L Magnesium 1.9 Total Bilirubin 6.6 H AST 149 H ALT 33 Alkaline Phosphatase 352 H Total Protein 5.7 L Albumin 2.7 L
[2022-02-13] MEDS: THIAMINE 100 MG TABLET PO (11:07)
[2022-02-13 11:35] LABS: SARS Antigen* negative (Negative)
--- NOTE | 2022-02-13 14:03 | PC.SOCIAL ---
Met with pt. and offered CD resources. Gave pt. inpatient and outpatient chemical dependancy resources, area mental health therapists, in-person and on line AA meetings. Pt. has never been to treatment in the past. Pt. accepted the resources and had no further questions.
--- NOTE | 2022-02-13 16:20 | PC.NURSE ---
SHIFT REPORT: PATIENT PLEASANT AND COOPERATIVE, UP IND IN ROOM AND HALLWAYS WITH STEADY GAIT, RATING PAIN IN ABDOMEN 5-8/10 BEING MANAGED WITH PRN OXYCODONE, ACTIVE BOWEL SOUNDS, DECLINING NAUSEA, TOLERATING REGULAR DIET EATING 50% OF MEALS OR EATING SMALLER MORE FREQUENT MEALS, PATIENT STATES I FEEL FULL VERY FAST, CIWAS NEGATIVE.
[2022-02-13] MEDS: 0.9 % SODIUM CHLORIDE 250 ml IV (17:41)
[2022-02-13] MEDS: cefTRIAXone 2 GM in 0.9 % SODIUM CHLORIDE Mini-bag 100 ML IVPB (17:41)
[2022-02-13] MEDS: KETOROLAC 15 MG/ML inj IVP (20:24)
[2022-02-13] MEDS: hydrOXYzine pamoate 25 MG CAPSULE PO (20:31)
[2022-02-14] VITALS (9 sets, daily range): BP systolic 104–113; BP diastolic 76–83; PULSE 96–115; RESP 16; TEMP 36.9–37.4; O2SAT 93–99
--- NOTE | 2022-02-14 06:44 | PC.NURSE ---
Shift Note : Pt pleasant and cooperative, VSS, slight fever noted at start of shift, reduced to normal at recheck. CIWAs have been 0 consistently. Pain poorly controlled with Oxycodone by Pt report. See eMAR for medication administration.
[2022-02-14] MEDS: OXYCODONE 5 MG TABLET PO ×4 (06:57→20:06)
[2022-02-14] MEDS: hydrOXYzine pamoate 25 MG CAPSULE PO ×4 (06:57→20:06)
[2022-02-14] MEDS: OMEPRAZOLE 20 MG CAPSULE DR 40 MG PO (06:58)
[2022-02-14] MEDS: KETOROLAC 15 MG/ML inj IVP ×2 (06:58→20:06)
[2022-02-14 07:55] LABS: Albumin* 3.7 g/dL (3.3-5.0); Chloride* 100 mmol/L (96-114); Potassium* 3.5 mmol/L (3.6-5.1); Sodium* 137 mmol/L (135-149)
[2022-02-14 07:57] LABS: Creatinine* 0.4 mg/dL (0.5-1.5); Est. Creatinine Clearance* 146.92; Estimated Glomerular Filt Rate 124 ml/min
[2022-02-14 07:58] LABS: Alanine Aminotransferase* 32 U/L (4-35); Alkaline Phosphatase* 316 U/L (40-150); Aspartate Amino Transferase* 163 U/L (12-35); Bilirubin Total* 7.1 mg/dL (0.1-1.5); Blood Urea Nitrogen* 3 mg/dL (5-24); Carbon Dioxide* 28 mmol/L (20-32); Glucose* 84 mg/dL (60-115); Total Protein* 6.8 g/dL (6.0-8.3)
[2022-02-14 07:59] LABS: Calcium* 8.5 mg/dL (8.4-10.6)
[2022-02-14] MEDS: MULTIVITAMIN/MINERALS 1 TABLET 1 TAB PO (08:57)
[2022-02-14] MEDS: SPIRONOLACTONE 25 MG TABLET PO (08:57)
[2022-02-14] MEDS: FOLIC ACID 1 MG TABLET PO (08:57)
[2022-02-14] MEDS: SODIUM CHLORIDE 0.9 % (FLUSH) 10 ML SYRINGE 5 ML IVF (08:58)
[2022-02-14] MEDS: THIAMINE 100 MG TABLET PO (11:05)
--- NOTE | 2022-02-14 15:54 | PM.IMPN1 ---
Progress Note: A&P Assessment and plan (1) SBP (spontaneous bacterial peritonitis): Problem details: Suspected SBP secondary to alcohol use. No fluid pocket identified for diagnostic paracentesis. Status: Suspected Assessment and Plan: Continue empiric treatment with ceftriaxone 2 g daily, today is day 4/5. Blood cultures NGTD No renal failure, but she is at risk for developing this due to possible SBP. Check renal function daily. (2) Alcoholic liver damage: Status: Acute Assessment and Plan: Continue spironolactione. Outpatient GI consultation. AST 185->163 Tbili 8.9->7.1 Alk phos 460->316 Follow daily LFTs, INR check hepatitis serologies Albumin X1 today (3) Elevated MCV: Problem details: suspect secondary to EtOH. Status: Acute (4) Hypokalemia: Status: Acute Assessment and Plan: Replace carefully since she is on spironolactone. Recheck in am. (5) Elevated bilirubin: Status: Acute Assessment and Plan: as above. (6) Ascites: Status: Acute Assessment and Plan: as above. (7) Alcohol withdrawal: Status: Suspected Assessment and Plan: continue CIWA protocol. Plan VTE prophylaxis with SCDs and ambulation. Time Spent With Patient Total time spent: 25 Subjective Date Seen: 02/14/22 Interval history: patient complains of abdominal pain and distention denies fever no nausea or vomiting no chest pain Exam Narrative: Exam Narrative: Gen: no acute distress HEENT: NCAT EOMI mmm CV: Tachycardic lungs: CTAB Abd: Mild generalized distention no rebound or guarding Skin: jaundiced Const: Vital Signs, click to edit/add: Vital Signs - 24 hr 02/13/22 19:24 02/13/22 21:28 02/13/22 23:00 Temperature 100.5 F H 98.8 F Pulse Rate [Right Pulse Oximeter] 111 H 103 H 108 H Respiratory Rate 16 16 16 Blood Pressure [Le ft Arm] 112/81 101/81 Pulse Oximetry 97 95 02/14/22 03:24 02/14/22 07:00 02/14/22 11:00 Temperature 98.5 F 98.5 F 98.8 F Pulse Rate [Right Pulse Oximeter] 96 100 107 H Respiratory Rate 16 16 16 Blood Pressure [Le ft Arm] 110/83 107/80 108/81 Pulse Oximetry 95 97 99 Labs Labs: Laboratory Results - last 24 hr 02/14/22 07:24 Sodium 137 Potassium 3.5 L Chloride 100 Carbon Dioxide 28 BUN 3 L Creatinine 0.4 L Estimated Creat Clear 146.92 Estimated GFR 124 Glucose 84 Calcium 8.5 Total Bilirubin 7.1 H AST 163 H ALT 32 Alkaline Phosphatase 316 H Total Protein 6.8 Albumin 3.7
[2022-02-14] MEDS: ALBUMIN HUMAN 25% 100 ML VIAL IV (17:00)
[2022-02-14 17:30] LABS: Lactate* 4.1 mmol/L (0.5-1.9)
--- NOTE | 2022-02-14 17:40 | PC.NURSE ---
PATIENT UP IND IN ROOM WITH STEADY GAIT, RATING PAIN IN ABDOMEN 5-6/10 SEE EMAR FOR MANAGEMENT, PATIENT STATES COMPRESSING HELPS WITH PAIN AT THIS TIME WRAPPING BLANKET AROUND ABDOMEN, MD UPDATED AND NO NEW ORDERS, TOLERATING REGULAR DIET EATING 50-75% OF MEALS, DECREASED URINE OUTPUT MD UPDATED WITH NO CHANGED AT THIS TIME.
[2022-02-14] MEDS: cefTRIAXone 2 GM in 0.9 % SODIUM CHLORIDE Mini-bag 100 ML IVPB (18:16)
[2022-02-14] MEDS: 5 % DEXTROSE IN LAC RINGER'S 1,000 ML 250 ML IV (18:55)
[2022-02-15] MEDS: hydrOXYzine pamoate 25 MG CAPSULE PO ×4 (02:58→20:09)
[2022-02-15] MEDS: OXYCODONE 5 MG TABLET PO ×5 (02:58→20:09)
[2022-02-15 03:00] VITALS: BP 126/86; PULSE 115; RESP 16; TEMP 36.8; O2SAT 98
[2022-02-15] MEDS: 0.9 % SODIUM CHLORIDE 500 ML 500 ML IV (03:00)
--- NOTE | 2022-02-15 04:00 | PC.NURSE ---
Pt rested well this night. IND in room. Pain reported 4-7/10. Abdominal binder requested and given. States the binder is helping with the pain. HR sinus Tach @ 115-120. Pleasant and cooperative. CIWAs unremarkable.
--- NOTE | 2022-02-15 06:00 | CRLHL7_ITS ---
For Patients: As a result of the Century Cures Act, medical imaging exams and procedure reports are released immediately into your electronic medical record. You may view this report before your referring provider. If you have questions, please contact your health care provider. INDICATION: Ascites check. TECHNIQUE: Directed ultrasound of all 4 quadrants of the abdomen and pelvis. FINDINGS: Abdominopelvic ascites. The largest pocket is in the right lower quadrant measuring 9.4 cm. IMPRESSION: Abdominopelvic ascites. The largest pocket is in the right lower quadrant. Dictated by Suleiman Pacheco MD @ 02/15/2022 9:08:13 AM (Electronically Signed)
[2022-02-15] MEDS: OMEPRAZOLE 20 MG CAPSULE DR 40 MG PO (06:29)
[2022-02-15 07:00] VITALS: BP 109/70; PULSE 108; RESP 16; TEMP 37.3; O2SAT 96
[2022-02-15 07:33] LABS: Lactate* 2.8 mmol/L (0.5-1.9)
[2022-02-15 07:42] LABS: Basophils Absolute Auto 0.02 K/uL (0.00-0.30); Basophils Percent Auto 0.2 % (0.0-3.0); Eosinophils Absolute Auto 0.08 K/uL (0.00-0.50); Eosinophils Percent Auto 0.8 % (0.0-7.0); Hematocrit 34.9 % (33.0-51.0); Hemoglobin* 11.3 gm/dL (12.0-16.0); Immature Granulocytes Abs Auto 0.05 K/uL (0.00-0.30); Lymphocytes Percent Auto 10.9 % (20-44); Mean Corpuscular HGB Conc 32 gm/dL (32-36); Mean Corpuscular Hemoglobin 35 pg (26-34); Mean Corpuscular Volume 108 fL (80-100); Neutrophils Percent Auto 77.6 % (42.0-72.0); Platelet Count* 129 K/uL (140-440); RDW Coefficient of Variation % 17.1 % (11.5-15.5); Red Blood Count 3.23 m/uL (4.00-5.20); White Blood Count* 9.94 K/uL (4.50-11.00)
[2022-02-15 07:43] LABS: Slide Review Reflex No
[2022-02-15 08:02] LABS: Albumin* 3.3 g/dL (3.3-5.0); Sodium* 136 mmol/L (135-149)
[2022-02-15 08:04] LABS: Creatinine* 0.3 mg/dL (0.5-1.5); Est. Creatinine Clearance* 195.89; Estimated Glomerular Filt Rate 133 ml/min
[2022-02-15 08:05] LABS: Alanine Aminotransferase* 27 U/L (4-35); Alkaline Phosphatase* 273 U/L (40-150); Aspartate Amino Transferase* 138 U/L (12-35); Bilirubin Direct* 5.3 mg/dL (0.0-0.5); Bilirubin Total* 6.5 mg/dL (0.1-1.5); Blood Urea Nitrogen* 3 mg/dL (5-24); Carbon Dioxide* 28 mmol/L (20-32); Glucose* 89 mg/dL (60-115); Total Protein* 6.1 g/dL (6.0-8.3)
[2022-02-15 08:08] LABS: INR 1.34 (0.91-1.10)
[2022-02-15 08:18] LABS: Chloride* 101 mmol/L (96-114); Potassium* 3.5 mmol/L (3.6-5.1)
[2022-02-15] MEDS: FOLIC ACID 1 MG TABLET PO (08:34)
[2022-02-15] MEDS: MULTIVITAMIN/MINERALS 1 TABLET 1 TAB PO (08:34)
[2022-02-15] MEDS: SODIUM CHLORIDE 0.9 % (FLUSH) 10 ML SYRINGE 5 ML IVF ×2 (08:34→17:46)
[2022-02-15] MEDS: THIAMINE 100 MG TABLET PO (08:34)
[2022-02-15 11:00] VITALS: BP 117/79; PULSE 114; RESP 16; TEMP 37.1; O2SAT 98
[2022-02-15 13:11] LABS: Iron* 44 ug/dL (37-170)
[2022-02-15 13:21] LABS: Percent Iron Saturation 25 % (20-50); Total Iron Binding Capacity 177 ug/dL (265-497)
[2022-02-15 13:46] LABS: Ferritin* 75.7 ng/mL (6.24-137.0)
--- NOTE | 2022-02-15 13:51 | PM.IMPN1 ---
Progress Note: A&P Assessment and plan (1) SBP (spontaneous bacterial peritonitis): Problem details: The diagnosis is established by a positive ascitic fluid bacterial culture and an ascitic fluid absolute polymorphonuclear leukocyte (PMN) count =250 cells/microL. Status: Suspected Assessment and Plan: Suspected SBP secondary to alcohol use. Continues on 2 g of IV Rocephin Q 24 hours. Paracentesis planned for 5:00 p.m. -general surgery aware -meld score 18, 6% estimated 3 month mortality -once we have reviewed fluid analysis from her paracentesis, we have her abdominal distension under better control and she has improvement in her p.o. intake we can discharge her for outpatient workup and follow GI for alcoholic liver disease (2) Ascites: Problem details: Albumin infusions (40 grams twice weekly x 2, then weekly) to be considered, along with paracentesis and diuretic management Status: Acute Assessment and Plan: paracentsis today. ramp up diuretic dose: 100:40 goal for spironolactone and Lasix. Albumin infusion yesterday, consider repeating twice weekly. (3) Alcoholic liver damage: Status: Acute Assessment and Plan: new diagnosis, first hospitalization for ALD, ascites. (4) Elevated MCV: Problem details: suspect secondary to EtOH. Status: Acute (5) Hypokalemia: Status: Acute Assessment and Plan: noted. trending.following. (6) Elevated bilirubin: Status: Acute Assessment and Plan: related to ALD. (7) Alcohol withdrawal: Status: Resolved Assessment and Plan: CIWA has been normal. Discontinuing that intervention/monitoring. Subjective Date Seen: 02/15/22 Interval history: Daily Progress Note - Hospital Medicine Day #: 5 CC: Abdominal distension, alcoholic liver disease, probable SBP OVERNIGHT UPDATES FROM STAFF & MED, LAB, IMAGING UPDATES The same. No better no worse. Still complaining of abdominal distension. Still has a lot of questions regarding alcoholic liver disease. Wonders if this could be something old like her pancreas or an infection not related to the ascites. Has a lot of denial regarding the amount of damage done from alcohol. ?I just do not drink that much? but does acknowledge daily drinking for the last year with acceleration on weekends. trying to eat, but reports early satiety Ultrasound this morning shows at least 1 bigger area available for paracentesis. Blood pressure 117/79 Pulse elevated at 114 temperature 98.8? Weight is up from 65.7 kilos to 67.1 Review of labs today shows a pattern consistent with alcoholic liver disease -white count -mild anemia Elevated MCV -elevated INR not on oral anticoagulation -hypokalemia -elevated lactate but down trending -total bilirubin elevated 7.1, down to 6.5 Elevated AST Normal a.m. Alk-phos down trending Lipase normal, CRP mildly reactive 2+ bilirubin noted in her admission urine -hep panel still pending Blood cultures negative. Urine culture mixed juan luis Review of Systems: See subjective lack of appetite. early satiety Cardiac: No new chest pain/pressure/palpitations. Respiratory: no new dyspnea. GI: uncomfortable abdominal distension Objective: Vitals: see above Scleral icterus Lungs: Clear. Cardiac: S1S2. Abdomen: Distended/protuberant fluid shift Disposition/Potential discharge - Likely to return to previous living situation. Total time is 25 minutes with greater than 50% spent in counseling and coordination of care. Exam Const: Vital Signs, click to edit/add: Vital Signs - 24 hr 02/14/22 15:00 02/14/22 19:00 02/14/22 20:06 Temperature 99.2 F 99.4 F 99.4 F Pulse Rate [Right Pulse Oximeter] 100 110 H Respiratory Rate 16 16 Blood Pressure [Le ft Arm] 104/77 109/76 Pulse Oximetry 93 97 02/14/22 22:25 02/14/22 22:47 02/14/22 22:48 Temperature 99.2 F 99.2 F Pulse Rate [Right Pulse Oximeter] 115 H 115 H 115 H Respiratory Rate 16 16 16 Blood Pressure [Le ft Arm] 113/79 113/79 Pulse Oximetry 99 99 02/15/22 03:00 02/15/22 07:00 02/15/22 11:00 Temperature 98.2 F 99.1 F 98.8 F Pulse Rate [Right Pulse Oximeter] 115 H 108 H 114 H Respiratory Rate 16 16 16 Blood Pressure [Le ft Arm] 126/86 109/70 117/79 Pulse Oximetry 98 96 98 Labs Labs: Laboratory Results - last 24 hr 02/14/22 02/15/22 02/15/22 16:21 00:55 07:01 WBC RBC Hgb Hct MCV MCH MCHC RDW Coeff of Nicolas Plt Count Neut % (Auto) Lymph % (Auto) Esmeralda % (Auto) Eos % (Auto) Baso % (Auto) Neut # (Auto) Lymph # (Auto) Esmeralda # (Auto) Eos # (Auto) Baso # (Auto) Abs Immat Gran (auto) INR Sodium 136 Potassium 3.5 L Chloride 101 Carbon Dioxide 28 BUN 3 L Creatinine 0.3 L Estimated Creat Clear 195.89 Estimated GFR 133 Glucose 89 Lactate 4.1 H* 4.0 H Calcium 8.0 L Iron TIBC % Saturation Total Bilirubin 6.5 H Direct Bilirubin 5.3 H AST 138 H ALT 27 Alkaline Phosphatase 273 H Total Protein 6.1 Albumin 3.3 02/15/22 02/15/22 02/15/22 07:01 07:01 07:01 WBC 9.94 RBC 3.23 L Hgb 11.3 L Hct 34.9 MCV 108 H MCH 35 H MCHC 32 RDW Coeff of Nicolas 17.1 H Plt Count 129 L Neut % (Auto) 77.6 H Lymph % (Auto) 10.9 L Esmeralda % (Auto) 10.0 Eos % (Auto) 0.8 Baso % (Auto) 0.2 Neut # (Auto) 7.70 H Lymph # (Auto) 1.10 Esmeralda # (Auto) 1.00 H Eos # (Auto) 0.08 Baso # (Auto) 0.02 Abs Immat Gran (auto) 0.05 INR 1.34 H Sodium Potassium Chloride Carbon Dioxide BUN Creatinine Estimated Creat Clear Estimated GFR Glucose Lactate 2.8 H Calcium Iron TIBC % Saturation Total Bilirubin Direct Bilirubin AST ALT Alkaline Phosphatase Total Protein Albumin 02/15/22 07:01 WBC RBC Hgb Hct MCV MCH MCHC RDW Coeff of Nicolas Plt Count Neut % (Auto) Lymph % (Auto) Esmeralda % (Auto) Eos % (Auto) Baso % (Auto) Neut # (Auto) Lymph # (Auto) Esmeralda # (Auto) Eos # (Auto) Baso # (Auto) Abs Immat Gran (auto) INR Sodium Potassium Chloride Carbon Dioxide BUN Creatinine Estimated Creat Clear Estimated GFR Glucose Lactate Calcium Iron 44 TIBC 177 L % Saturation 25 Total Bilirubin Direct Bilirubin AST ALT Alkaline Phosphatase Total Protein Albumin
--- NOTE | 2022-02-15 14:03 | PC.NURSE ---
PATIENT PLEASANT AND COOPERATIVE, UP AD ELBERT IN ROOM WITH STEADY GAIT, RATING PAIN IN ABDOMEN 5-8/10 BEING MANAGED WITH PRN OXYCODONE, PER MD PLANNING FOR A PARACENTESIS AROUND 1700 TONIGHT, PATIENT AWARE NO CONCERNS AT THIS TIME, ABDOMINAL BINDER IN PLACE PER PATIENT COMFORT, TOLERATING REGULAR DIET.
[2022-02-15] MEDS: SPIRONOLACTONE 25 MG TABLET PO (14:55)
[2022-02-15] MEDS: FUROSEMIDE 40 MG TABLET PO (14:55)
[2022-02-15 15:00] VITALS: BP 109/76; PULSE 122; RESP 16; TEMP 37.2; O2SAT 98
[2022-02-15 15:45] VITALS: PULSE 122; RESP 16
--- NOTE | 2022-02-15 16:34 | PM.GSPN ---
Subjective Subjective Date Seen: 02/15/22 Interval history: I was asked to see Mabel today because she has a new diagnosis of liver failure and ascites and is having abdominal pain and shortness of breath. Previously she was evaluated by Dr. Whitfield however there was no safe window for paracentesis. Today on ultrasound it appeared as though she may have a window on the right side and I was asked to re-evaluate her paracentesis. Mabel does have some mild shortness of breath, and some discomfort from the abdominal distension. Exam Narrative: Exam Narrative: General: No acute distress Respiratory breathing is nonlabored Abdomen: Distended but still slightly soft. No guarding or rebound. Const: Vital Signs, click to edit/add: Vital Signs - 24 hr 02/14/22 19:00 02/14/22 20:06 02/14/22 22:25 Temperature 99.4 F 99.4 F 99.2 F Pulse Rate [Right Pulse Oximeter] 110 H 115 H Respiratory Rate 16 16 Blood Pressure [Le ft Arm] 109/76 113/79 Pulse Oximetry 97 99 02/14/22 22:47 02/14/22 22:48 02/15/22 03:00 Temperature 99.2 F 98.2 F Pulse Rate [Right Pulse Oximeter] 115 H 115 H 115 H Respiratory Rate 16 16 16 Blood Pressure [Le ft Arm] 113/79 126/86 Pulse Oximetry 99 98 02/15/22 07:00 02/15/22 11:00 02/15/22 15:00 Temperature 99.1 F 98.8 F 98.9 F Pulse Rate [Right Pulse Oximeter] 108 H 114 H 122 H Respiratory Rate 16 16 16 Blood Pressure [Le ft Arm] 109/70 117/79 109/76 Pulse Oximetry 96 98 98 Labs/Imaging Labs Labs: INR 1.3 white blood cell count within normal limits. Progress Note: A&P Assessment and plan (1) SBP (spontaneous bacterial peritonitis): Problem details: The diagnosis is established by a positive ascitic fluid bacterial culture and an ascitic fluid absolute polymorphonuclear leukocyte (PMN) count =250 cells/microL. Status: Suspected (2) Ascites: Problem details: Albumin infusions (40 grams twice weekly x 2, then weekly) to be considered, along with paracentesis and diuretic management Status: Acute (3) Alcoholic liver damage: Status: Acute (4) Elevated MCV: Problem details: suspect secondary to EtOH. Status: Acute (5) Hypokalemia: Status: Acute (6) Elevated bilirubin: Status: Acute (7) Alcohol withdrawal: Status: Resolved Plan The patient is a 46-year-old female with new diagnosis of alcoholic liver disease and liver failure. It was hopeful that there was a good window based on her ultrasound from this morning, however when I we repeated the ultrasound at the bedside with the graphic art technician, the only window possible was near the midline near the bladder and right in the area of the epigastric vessels. Because of this I did not feel that it was safe to proceed. I explained to the patient that I recommended continuing diuretics and if her ascites worsens then hopefully I will be able to find a target for paracentesis. We had discussed the risks and benefits of the procedure and she had previously agreed to proceed. I told her that I recommended continuing to abstain from alcohol and upon discharge referral to gastroenterology.
[2022-02-15] MEDS: cefTRIAXone 2 GM in 0.9 % SODIUM CHLORIDE Mini-bag 100 ML IVPB (17:45)
[2022-02-15 19:00] VITALS: BP 116/91; PULSE 118; RESP 16; TEMP 37.3; O2SAT 97
--- NOTE | 2022-02-15 21:29 | PC.NURSE ---
Shift note 15-23: Pt up ad fern, verbalizing abd pain tolerable w/ use of PRN Oxycodone/Vistaril Q4h and abd binder. Bedside US @ 1600 showed minimal fluid pockets so paracentesis not performed. Pt diuresed 2950cc from Lasix. Plans to DC home tomorrow.
[2022-02-16] VITALS (12 sets, daily range): BP systolic 95–115; BP diastolic 68–88; PULSE 109–118; RESP 16–18; TEMP 36.7–38.1; O2SAT 96–98
[2022-02-16] MEDS: OXYCODONE 5 MG TABLET PO ×5 (01:06→22:42)
[2022-02-16] MEDS: OMEPRAZOLE 20 MG CAPSULE DR 40 MG PO (06:30)
--- NOTE | 2022-02-16 06:51 | PC.NURSE ---
END OF SHIFT NOTE: PT PLEASANT AND COOPERATIVE. PT AMBULATES INDEPENDENTLY. VSS ON RA. ORAL TEMP READINGS HAVE BEEN 99.0 AND 99.3. POSTERIOR MID AND LOWER LOBES NOTED TO HAVE EXPIRATORY WHEEZES. ENCOURAGED USE OF IS. PT HAS NON-PRODUCTIVE, INTERMITTENT COUGH. DENIES ANY SPUTUM. PT RATES ABD/HIP PAIN 8/10 DECREASED WITH REPOSITIONING AND THE ADMINISTRATION OF PRN OXYCODONE. VOIDING WELL. PT C/O BACK AND ABD ITCHING; PT HAD JUST REMOVED ABD BINDER; SKIN WAS CDI.
--- NOTE | 2022-02-16 07:27 | CRLHL7_ITS ---
For Patients: As a result of the Century Cures Act, medical imaging exams and procedure reports are released immediately into your electronic medical record. You may view this report before your referring provider. If you have questions, please contact your health care provider. Indication: Alcoholic liver disease ascites wheezing Technique: Contrast CT chest abdomen pelvis 95 mL Isovue 370 Comparison: No comparison Findings: Normal caliber thoracic aorta heart size is normal. Calcified lower paraesophageal lymph nodes. No pericardial effusion. Small right effusion and basilar atelectasis on the right. Minimal centrilobular emphysema. Right hemidiaphragm elevated right basilar, right middle atelectasis right basilar granuloma. Spleen upper limits of normal measuring 12.8 centimeters. Hepatomegaly measuring 28 cm cranial to caudal dimension fatty liver. Recanalized umbilical vein. No focal liver mass. Moderate ascites. Gallbladder appears slightly distended there is fluid around the gallbladder probably related to the surrounding ascites. Pancreas adrenal glands unremarkable normal caliber abdominal aorta. Kidneys are unremarkable. No bowel obstruction. Urinary bladder unremarkable. Diffuse mild subcutaneous edema. Impression: 1. No acute pulmonary findings. Elevation right hemidiaphragm with right middle and right basilar atelectasis. Small right effusion. Mild emphysema. 2. Moderate volume abdominal pelvic ascites. 3. Hepatomegaly. Hepatic steatosis. Recanalized umbilical vein which can be seen with portal hypertension. Spleen upper limits of normal. 4. Gallbladder slightly distended. 5. Diffuse subcutaneous edema. Please note that all CT scans at this facility use dose modulation, iterative reconstruction, and/or weight-based dosing when appropriate to reduce radiation dose to as low as reasonably achievable. Dictated by Ashlyn Gomez MD @ 02/16/2022 9:44:21 AM (Electronically Signed)
[2022-02-16 08:02] LABS: Lactate* 2.3 mmol/L (0.5-1.9)
[2022-02-16] MEDS: hydrOXYzine pamoate 25 MG CAPSULE PO ×3 (08:21→18:27)
[2022-02-16] MEDS: SODIUM CHLORIDE 0.9 % (FLUSH) 10 ML SYRINGE 5 ML IVF ×2 (08:30→20:44)
[2022-02-16 08:37] LABS: Lipase* 96 U/L (23-300)
[2022-02-16 08:38] LABS: Phosphorus* 2.7 mg/dL (2.5-4.5)
[2022-02-16 08:39] LABS: Hematocrit 32.7 % (33.0-51.0); Hemoglobin* 10.7 gm/dL (12.0-16.0); Mean Corpuscular HGB Conc 33 gm/dL (32-36); Mean Corpuscular Hemoglobin 35 pg (26-34); Mean Corpuscular Volume 106 fL (80-100); Platelet Count* 139 K/uL (140-440); Red Blood Count 3.08 m/uL (4.00-5.20); White Blood Count* 10.55 K/uL (4.50-11.00)
[2022-02-16 08:39] LABS: Albumin* 3.3 g/dL (3.3-5.0); Chloride* 101 mmol/L (96-114)
[2022-02-16 08:40] LABS: Potassium* 3.5 mmol/L (3.6-5.1); Sodium* 135 mmol/L (135-149)
[2022-02-16 08:42] LABS: Alkaline Phosphatase* 266 U/L (40-150); Aspartate Amino Transferase* 138 U/L (12-35); Bilirubin Total* 7.6 mg/dL (0.1-1.5); Carbon Dioxide* 26 mmol/L (20-32); Creatinine* 0.3 mg/dL (0.5-1.5); Est. Creatinine Clearance* 195.89; Estimated Glomerular Filt Rate 133 ml/min; Total Protein* 6.1 g/dL (6.0-8.3)
[2022-02-16 08:42] LABS: Slide Review Reflex No
[2022-02-16 08:43] LABS: Alanine Aminotransferase* 26 U/L (4-35); Blood Urea Nitrogen* 2 mg/dL (5-24); Calcium* 8.3 mg/dL (8.4-10.6); Gamma Glutamyl Transpeptidase* 390 U/L (8-55); Glucose* 91 mg/dL (60-115)
[2022-02-16 08:45] LABS: C Reactive Protein* 4.1 mg/dL (0.5-1.0)
[2022-02-16 08:47] LABS: NT Pro B Type NatriureticPept* 315 PG/mL (0-125)
[2022-02-16] MEDS: FUROSEMIDE 40 MG TABLET PO (09:28)
[2022-02-16] MEDS: FOLIC ACID 1 MG TABLET PO (09:28)
[2022-02-16] MEDS: MULTIVITAMIN/MINERALS 1 TABLET 1 TAB PO (09:28)
[2022-02-16] MEDS: THIAMINE 100 MG TABLET PO (09:28)
[2022-02-16] MEDS: SPIRONOLACTONE 25 MG TABLET 50 MG PO (09:29)
--- NOTE | 2022-02-16 12:20 | P.IMPN_ITS ---
Progress Note: A&P Assessment and plan (1) SBP (spontaneous bacterial peritonitis): Status: Suspected Assessment and Plan: no ability to get fluid sample - gen surgery looked twice. subcu fluid noted. has completed 5 days of rocephin. no further abx indicated. this dx was never confirmed but we treated for as a precaution (2) Ascites: Status: Acute Assessment and Plan: increasing aldactone to 100mg daily and keeping lasix 40mg qam measure daily weights; prn orthostatics, daily BMPs likely can get home this weekend. will need [facility] referral (3) Elevated MCV: Problem details: suspect secondary to EtOH. Status: Acute (4) Hypokalemia: Status: Acute Assessment and Plan: follow and replace as needed (5) Elevated bilirubin: Status: Acute Assessment and Plan: ALD. [facility] to see as outpatient. (6) Alcohol withdrawal: Status: Resolved Assessment and Plan: no current issues Subjective Date Seen: 02/16/22 Interval history: OVERNIGHT UPDATES FROM STAFF & MED, LAB, IMAGING UPDATES Daily Progress Note - Hospital Medicine Day #: 6 CC: Continued abdominal distension, evidence of alcoholic liver disease OVERNIGHT UPDATES FROM STAFF & MED, LAB, IMAGING UPDATES Slept better last night. Notes increased urinary frequency secondary to her increased diuretic dosing. Appetite is still poor. Up ambulatory in the room. 95/68 112 99.3 Room air Weight is 153.3 lb, baseline is 135-140 Impression: 1. No acute pulmonary findings. Elevation right hemidiaphragm with right middle and right basilar atelectasis. Small right effusion. Mild emphysema. 2. Moderate volume abdominal pelvic ascites. 3. Hepatomegaly. Hepatic steatosis. Recanalized umbilical vein which can be seen with portal hypertension. Spleen upper limits of normal. 4. Gallbladder slightly distended. 5. Diffuse subcutaneous edema. Review of Systems: See subjective Cardiac: No new chest pain/pressure/palpitations. Respiratory: no new dyspnea. GI: Continued abdominal bloating Objective: Vitals: see above Lungs: inspiratory crackles seem less today at the bases. Cardiac: S1S2. Abdomen diffuse protuberant abdomen, evidence of mild fluid shifting Disposition/Potential discharge - Likely to return to previous living situation. Total time is 35 minutes with greater than 50% spent in counseling and coordination of care. Blood cultures negative. Urine culture mixed juan luis Disposition/Potential discharge - Likely to return to previous living situation. Total time is 25 minutes with greater than 50% spent in counseling and coordination of care. Exam Const: Vital Signs, click to edit/add: Vital Signs - 24 hr 02/15/22 15:00 02/15/22 15:45 02/15/22 19:00 Temperature 98.9 F 99.1 F Pulse Rate [Right Pulse Oximeter] 122 H 122 H 118 H Respiratory Rate 16 16 16 Blood Pressure [Le ft Arm] 109/76 116/91 H Pulse Oximetry 98 97 02/16/22 01:00 02/16/22 03:10 Temperature 99.0 F 99.3 F Pulse Rate [Right Pulse Oximeter] 116 H 112 H Respiratory Rate 16 16 Blood Pressure [Le ft Arm] 115/77 95/68 Pulse Oximetry 97 97 Labs Labs: Laboratory Results - last 24 hr 02/15/22 02/15/22 02/15/22 07:01 07:01 07:40 WBC RBC Hgb Hct MCV MCH MCHC Plt Count Sodium Potassium Chloride Carbon Dioxide BUN Creatinine Estimated Creat Clear Estimated GFR Glucose Lactate 2.3 H Calcium Phosphorus Iron 44 TIBC 177 L % Saturation 25 Ferritin 75.7 Total Bilirubin GGT AST ALT Alkaline Phosphatase C-Reactive Protein NT-Pro-B Natriuret Pep Total Protein Albumin Lipase [facility] 02/15/22 02/16/22 02/16/22 07:50 07:40 07:40 WBC 10.55 RBC 3.08 L Hgb 10.7 L Hct 32.7 L MCV 106 H MCH 35 H MCHC 33 Plt Count 139 L Sodium 135 Potassium 3.5 L Chloride 101 Carbon Dioxide 26 BUN 2 L Creatinine 0.3 L Estimated Creat Clear 195.89 Estimated GFR 133 Glucose 91 Lactate Calcium 8.3 L Phosphorus 2.7 Iron TIBC % Saturation Ferritin Total Bilirubin 7.6 H GGT 390 H AST 138 H ALT 26 Alkaline Phosphatase 266 H C-Reactive Protein 4.1 H NT-Pro-B Natriuret Pep 315 H Total Protein 6.1 Albumin 3.3 Lipase 96 TSH 02/16/22 08:31 WBC RBC Hgb Hct MCV MCH MCHC Plt Count Sodium Potassium Chloride Carbon Dioxide BUN Creatinine Estimated Creat Clear Estimated GFR Glucose Lactate Calcium Phosphorus Iron TIBC % Saturation Ferritin Total Bilirubin GGT AST ALT Alkaline Phosphatase C-Reactive Protein NT-Pro-B Natriuret Pep Total Protein Albumin Lipase TSH 4.620 H
[2022-02-16 16:53] LABS: Hepatitis B Core Antibody, IgM Negative (Negative); Hepatitis B Surface Antigen Negative (Negative); Hepatitis C Antibody by CIA Negative (Negative)
[2022-02-16] MEDS: ACETAMINOPHEN 500 MG TABLET PO (17:33)
--- NOTE | 2022-02-16 18:45 | PC.NURSE ---
PATIENT TOLERATING REGULAR DIET WITH NO C/O N/V. REPORTS PAIN 5-8/10 TO BILATERAL HIPS AND ABDOMEN THAT IS IMPROVED WITH OXYCODONE. THIS AFTERNOON, PATIENT HAD TEMP OF 100.6 AND REPORTED HAVING A HEADACHE. DR. BRODY UPDATED AND RECEIVED ORDER FOR LOW DOSE TYLENOL WHICH BROUGHT TEMP DOWN TO 99.3. ENCOURAGED PATIENT TO USE INCENTIVE SPIROMETER. PATIENT HAS INTERMITTENT, NONPRODUCTIVE COUGH. LUNG SOUNDS WITH EXPIRATORY WHEEZING. PATIENT AMBULATING INDEPENDENTLY IN ROOM AND IN HALLWAY. BS ACTIVE AND PATIENT REPORTS HAVING SOFT, FORMED BM THIS MORNING.
[2022-02-17] VITALS: PULSE 109; RESP 18
[2022-02-17 03:30] VITALS: BP 103/76; PULSE 97; RESP 16; TEMP 36.7; O2SAT 97
[2022-02-17] MEDS: OMEPRAZOLE 20 MG CAPSULE DR 40 MG PO (06:30)
--- NOTE | 2022-02-17 07:01 | PC.NURSE ---
END OF SHIFT NOTE: PT PLEASANT AND COOPERATIVE. DENIES CHEST PAIN, SOB, N/V. AMBULATES INDEPENDENTLY WITHIN ROOM. VSS AND WNL ON RA. PAIN RATED 5-8/10 TO ABDOMINAL SIDES. PITTING EDEMA TO BLE. CONTINUOUS ENCOURAGEMENT OF IS USE. PT RESTED WELL HS.
[2022-02-17 07:25] LABS: Lactate* 2.6 mmol/L (0.5-1.9)
[2022-02-17 07:38] LABS: Hematocrit 35.7 % (33.0-51.0); Hemoglobin* 11.7 gm/dL (12.0-16.0); Mean Corpuscular HGB Conc 33 gm/dL (32-36); Mean Corpuscular Hemoglobin 35 pg (26-34); Mean Corpuscular Volume 107 fL (80-100); Platelet Count* 171 K/uL (140-440); Red Blood Count 3.34 m/uL (4.00-5.20); White Blood Count* 12.51 K/uL (4.50-11.00)
[2022-02-17 07:45] LABS: Slide Review Reflex No
[2022-02-17 07:57] LABS: Chloride* 99 mmol/L (96-114)
[2022-02-17 07:58] LABS: Albumin* 3.5 g/dL (3.3-5.0); Potassium* 3.6 mmol/L (3.6-5.1); Sodium* 138 mmol/L (135-149)
[2022-02-17 08:00] VITALS: BP 111/93; PULSE 104; RESP 16; RESP 18; TEMP 37.2; O2SAT 98
[2022-02-17 08:01] LABS: Alkaline Phosphatase* 283 U/L (40-150); Aspartate Amino Transferase* 138 U/L (12-35); Bilirubin Total* 7.9 mg/dL (0.1-1.5); Blood Urea Nitrogen* 4 mg/dL (5-24); Carbon Dioxide* 30 mmol/L (20-32); Creatinine* 0.4 mg/dL (0.5-1.5); Est. Creatinine Clearance* 146.92; Estimated Glomerular Filt Rate 124 ml/min; Gamma Glutamyl Transpeptidase* 391 U/L (8-55); Glucose* 91 mg/dL (60-115); Total Protein* 6.6 g/dL (6.0-8.3)
[2022-02-17 08:02] LABS: Alanine Aminotransferase* 28 U/L (4-35); Calcium* 8.7 mg/dL (8.4-10.6)
[2022-02-17 08:04] LABS: C Reactive Protein* 4.6 mg/dL (0.5-1.0)
[2022-02-17 08:08] LABS: NT Pro B Type NatriureticPept* 194 PG/mL (0-125)
[2022-02-17] MEDS: OXYCODONE 5 MG TABLET PO (09:10)
[2022-02-17] MEDS: FUROSEMIDE 40 MG TABLET PO (09:10)
[2022-02-17] MEDS: SODIUM CHLORIDE 0.9 % (FLUSH) 10 ML SYRINGE 5 ML IVF (09:11)
[2022-02-17] MEDS: MULTIVITAMIN/MINERALS 1 TABLET 1 TAB PO (09:11)
[2022-02-17] MEDS: FOLIC ACID 1 MG TABLET PO (09:11)
[2022-02-17] MEDS: SPIRONOLACTONE 25 MG TABLET 100 MG PO (09:11)
[2022-02-17] MEDS: THIAMINE 100 MG TABLET PO (09:11)
--- NOTE | 2022-02-17 14:33 | PC.NURSE ---
VSS AND AFEBRILE. PATIENT RECEIVING OXYCODONE FOR BILATERAL HIP PAIN WITH IMPROVEMENT. TOLERATING REGULAR DIET WITH NO C/O N/V. SL x2 DC'D. REVIEWED DC INSTRUCTIONS WITH PATIENT AND HER . BOTH DENIED QUESTIONS OR CONCERNS. PATIENT DC'D HOME VIA .
--- NOTE | 2022-02-18 16:36 | P.DS_ITS ---
DS: Providers Provider Time Seen by Provider: 07:30 Date Seen: 02/17/22 Date of admission: 02/11/22 16:27 Primary care physician: Not a Local Provider Admitting Clinician: Nataly Cleaning MD Consults: 02/11/22 17:37 Consult to Nutrition [CONS] Routine Comment: Reason for consult:: Nutritional Consult Comment: new diagnosis liver failure 02/17/22 08:12 Consult to Occupational Therapy [CONS] Routine Comment: Reason(s) for OT Consult:: Evaluate and Treat Any Restrictions?:: No Restrictions Attending Physician on discharge: José Miguel Hay MD Date of Discharge: 02/18/22 DS: Diagnosis Discharge Diagnosis (1) Abdominal pain: Status: Acute (2) SBP (spontaneous bacterial peritonitis): Status: Suspected (3) Hepatomegaly: Status: Acute (4) Hepatic steatosis: Status: Acute (5) Portal hypertension: Status: Acute (6) Alcoholic liver damage: Status: Acute (7) Alcohol withdrawal: Status: Resolved (8) Lactic acidosis: Status: Acute (9) Atelectasis of right lung: Status: Acute (10) Pleural effusion on right: Status: Acute (11) Emphysema lung: Status: Acute (12) Hypoalbuminemia: Status: Acute (13) Anemia: Status: Acute (14) Thrombocytopenia: Status: Acute (15) Leukocytosis, unspecified: Status: Acute (16) Elevated MCV: Status: Acute Problem details: suspect secondary to EtOH. (17) Hypokalemia: Status: Acute (18) Elevated bilirubin: Status: Acute (19) Ascites: Status: Acute (20) Elevated TSH: Status: Acute (21) Cachexia: Status: Acute (22) Muscle atrophy: Status: Acute DS: Summary Hospital Course Hospital Course: Mabel Wagner is a 46 year old female who presented to the ED with abdominal pain and distension. For the past 5 days, she has noted pain on both side of her abdomen.? Pain is better with positional changes. Minimal relief with Advil. No fevers, no recent travel or illness. Patient has a history of alcohol overuse; quit drinking 1-2 weeks ago after her daughter noted that patient's skin was becoming jaundiced. ER course and findings: ?- total bilirubin of 8.9, direct bilirubin of 7.4.? AST, ALT and alk-phos also all elevated ?- White blood count 11.4, platelets 190, MCV 106 ?- Sodium normal, potassium low at 3.2.? INR 1.23 ?- general surgery consulted for paracentesis; unfortunately, patient did not have a pocket large enough for tap Mabel is typically healthy, takes no medications regularly.? Does not regularly followup with a PCP. She is a . No family history of liver disease. Father has history of CAD. Lives in [place] with and 2 of 3 children. Works for [employer]. Nonsmoker, recently quit drinking - was previously drinking 5-6 drinks per day. Patient had mild alcohol withdrawal symptoms during the hospital stay which were managed with CIWA driven protocol and lorazepam. Patient treated for possible spontaneous bacterial peritonitis while in hospital. Responded well to this. Abdominal pain decreased. Required opioids p.r.n.. Abdominal binder helped alleviate the discomfort and the abdomen as well. Laying on the left side or the right side also helped alleviate the abdominal pain. Attempted multiple discussions with patient about the effects of alcohol on her body. She minimized her previous exposure to alcohol, she seemed to bargain indicating that she did not need any chemical dependency treatment. Informed her that this is still a concern for us on her behalf. Patient did agree to see our parts room assistant to reviewed with her various measures to address are concerns about her cachexia. Time spent discussing smoking cessation with patient: 3 to 10 minutes Status at Discharge Functional status at discharge: independent ambulation Overall status at discharge: patient is progressing back to baseline Time Spent with Patient Time attestation: Total time spent providing and/or coordinating discharge services: Time spent: Greater than 30 minutes Exam Narrative: Exam Narrative: Less jaundiced than when she 1st presented. Cachectic appearance with atrophy of muscles in arms and legs. Spider angioma of skin. Lungs clear to auscultation. Heart tones regular. Protuberant abdomen with ascites. Tender to palpation, much improved from presentation. Independent with transfer, station, and gait. Patient was able to demonstrate to our occupational therapist her ability to care for herself including dressing and undressing and managing in the bathroom. Const: Documenting provider has reviewed patient's vital signs: yes DS: Data Imaging US - abdomen: Radiologist's impression: 1. Hepatomegaly with diffuse fatty infiltration of the liver. 2. Abdominal ascites. 3. Distended gallbladder without any cholelithiasis. 4. Nondilated common bile duct measuring [address] Chest/Ab/Pelvis: Radiologist's impression: ?1. No acute pulmonary findings. Elevation right hemidiaphragm with right middle and right basilar atelectasis. Small right effusion. Mild emphysema. 2. Moderate volume abdominal pelvic ascites. 3. Hepatomegaly. Hepatic steatosis. Recanalized umbilical vein which can be seen with portal hypertension. Spleen upper limits of normal. 4. Gallbladder slightly distended. 5. Diffuse subcutaneous edema. Discharge Plan Discharge Disposition: Home, Self-Care Date of Admission: 02/11/22 16:27 Attending Provider on Discharge: José Miguel Hay Primary Care Provider: Provider,Not a Local Condition: Stable Anticipated Discharge Date/Time: 02/17/22 13:30 Discharge Medications: New furosemide 40 mg Tablet 40 mg PO DAILY 30 Days Qty: 30 2RF acetaminophen 500 mg Tablet 500 mg PO Q6H PRN15 Days Qty: 30 0RF spironolactone 25 mg Tablet 100 mg PO DAILY 30 Days Qty: 120 2RF omeprazole 20 mg Capsule,Delayed Release(Dr/Ec) 40 mg PO DAILY@0700 15 Days Qty: 15 0RF folic acid 1 mg Tablet 1 mg PO DAILY 30 Days Qty: 30 2RF oxycodone 5 mg Tablet 5 mg PO Q4H PRN10 Days Qty: 20 0RF hydroxyzine pamoate 25 mg Capsule 25 mg PO Q4H PRN15 Days Qty: 30 2RF vitamin B complex-folic acid 0.4 mg Tablet 1 tab PO DAILY 30 Days Qty: 30 2RF thiamine mononitrate (vit B1) [Vitamin B-1 (mononitrate)] 100 mg Tablet 100 mg PO DAILY 30 Days Qty: 30 2RF multivitamin with folic acid [Thera] 400 mcg Tablet 1 tab PO DAILY 30 Days Qty: 30 2RF No Action No Known Home Medications 0RF Discharge Orders: Discharge Order (Routine); Ordered 02/17/22 Ordered By: José Miguel Hay Patient Education: Spironolactone (By mouth), Furosemide (By mouth) (Lasix), Acetaminophen (By mouth), Omeprazole (By mouth), Thiamine (Vitamin B-1) (By mouth), Folic Acid (By mouth), Multivitamins with Minerals (By mouth), Hydroxyzine (By mouth), Oxycodone, Rapid Release (By mouth), Cirrhosis (GEN), Liver Fibrosis (GEN) Activity Restrictions/Additional Instructions: 1. Primary care physician evaluation in 1-2 weeks, with pre-visit CBC, Basic Metabolic Panel, Liver Function Panel, PT/INR; 2. Urge discontinuation of any and all exposure to alcohol consumption; 3. Recommend Chemical Dependency (Alcohol) assessment and treatment if warranted. Activity Level: No Restrictions and Activity as Tolerated Discharge Diet: Regular and High Protein/High Calorie Follow Up Appointments: Provider,Not a Local [Primary Care Provider] - Honey Glover MD [Staff Physician] - 02/22/22 10:15 am (lab appointment is Saturday02/19/22 at 12:30pm) Forms: [employer] Info Instructions
== END 2022-02-17 13:15 | disposition home or self-care (01) | DRG 248 ==
LOC: ED 14:17 → MEDSURG 16:28
PROVIDERS: Family Medicine; Hospitalist; Admitting Provider Family Medicine; Emergency Provider Emergency Medicine; Visit Provider Family Medicine
DX: K65.2 Spontaneous bacterial peritonitis (principal); K70.40 Alcoholic hepatic failure without coma; F10.20 Alcohol dependence, uncomplicated; E87.6 Hypokalemia; R18.8 Other ascites; K76.6 Portal hypertension; R64 Cachexia; E87.2 Acidosis; J98.11 Atelectasis; J91.8 Pleural effusion in other conditions classified elsewhere; R10.9 Unspecified abdominal pain; F10.239 Alcohol dependence with withdrawal, unspecified; R16.0 Hepatomegaly, not elsewhere classified; K76.0 Fatty (change of) liver, not elsewhere classified; E88.09 Other disorders of plasma-protein metabolism, not elsewhere classified; D64.9 Anemia, unspecified; D69.6 Thrombocytopenia, unspecified; M62.50 Muscle wasting and atrophy, not elsewhere classified, unspecified site; Z87.891 Personal history of nicotine dependence
CPT/HCPCS: 36415; 49083; 71260; 74177; 76705; 76942; 80048; 80053; 80074; 80076; 81001; 82077; 82728; 82977; 83540; 83550; 83605; 83690; 83735; 83880; 84100; 84443; 85025; 85027; 85610; 85730; 86140; 87040; 87086; 87426; 87502; 87634; 87635; 97165; 97535; 99284; 99285; A9153; A9270; J0696; J1885; J2270; J7030; J7050; J7120; P9047; Q9967

== ENCOUNTER 2022-03-01 10:14 | Outpatient (CLI) | payer BC, SELFPAY ==
[2022-03-01 17:15] LABS: Albumin* 3.3 g/dL (3.3-5.0); Chloride* 96 mmol/L (96-114)
[2022-03-01 17:16] LABS: Potassium* 3.3 mmol/L (3.6-5.1); Sodium* 136 mmol/L (135-149)
[2022-03-01 17:18] LABS: Aspartate Amino Transferase* 249 U/L (12-35); Bilirubin Total* 8.6 mg/dL (0.1-1.5); Carbon Dioxide* 29 mmol/L (20-32); Creatinine* 0.4 mg/dL (0.5-1.5); Estimated Glomerular Filt Rate 124 ml/min; Total Protein* 6.4 g/dL (6.0-8.3)
[2022-03-01 17:19] LABS: Alanine Aminotransferase* 33 U/L (4-35); Alkaline Phosphatase* 343 U/L (40-150); Blood Urea Nitrogen* 6 mg/dL (5-24); Calcium* 8.6 mg/dL (8.4-10.6); Glucose* 108 mg/dL (60-115)
== END 2022-03-01 10:15 | disposition home or self-care (01) ==
LOC: LONREF 10:16
PROVIDERS: Visit Provider Nurse Practitioner Family
DX: Z00.00 Encounter for general adult medical examination without abnormal findings (principal); K70.9 Alcoholic liver disease, unspecified
CPT/HCPCS: 80053

== ENCOUNTER 2022-03-12 10:35 | Outpatient (CLI) | payer BC, SELFPAY ==
[2022-03-12 17:58] LABS: Albumin* 3.3 g/dL (3.3-5.0); Chloride* 99 mmol/L (96-114); Sodium* 137 mmol/L (135-149)
[2022-03-12 17:59] LABS: Potassium* 3.7 mmol/L (3.6-5.1)
[2022-03-12 18:01] LABS: Alkaline Phosphatase* 289 U/L (40-150); Aspartate Amino Transferase* 202 U/L (12-35); Bilirubin Total* 5.6 mg/dL (0.1-1.5); Blood Urea Nitrogen* 5 mg/dL (5-24); Carbon Dioxide* 27 mmol/L (20-32); Creatinine* 0.5 mg/dL (0.5-1.5); Estimated Glomerular Filt Rate 118 ml/min; Gamma Glutamyl Transpeptidase* 284 U/L (8-55); Glucose* 107 mg/dL (60-115); Lactate Dehydrogenase* 507 U/L (313-618); Total Protein* 6.4 g/dL (6.0-8.3)
[2022-03-12 18:02] LABS: Alanine Aminotransferase* 32 U/L (4-35); Calcium* 8.7 mg/dL (8.4-10.6)
== END 2022-03-12 10:36 | disposition home or self-care (01) ==
LOC: LONREF 10:35
PROVIDERS: PCP Family Medicine; Visit Provider Nurse Practitioner Family
DX: R10.9 Unspecified abdominal pain (principal); K70.9 Alcoholic liver disease, unspecified
CPT/HCPCS: 80053; 82977; 83615; 84443

== ENCOUNTER 2022-05-09 08:27 | Outpatient (CLI) | payer BC, SELFPAY ==
[2022-05-09 14:24] LABS: Albumin* 4.3 g/dL (3.3-5.0); Chloride* 102 mmol/L (96-114); Potassium* 3.5 mmol/L (3.6-5.1); Sodium* 139 mmol/L (135-149)
[2022-05-09 14:26] LABS: Cholesterol* 175 mg/dL (90-199)
[2022-05-09 14:27] LABS: Aspartate Amino Transferase* 31 U/L (12-35); Bilirubin Total* 1.7 mg/dL (0.1-1.5); Blood Urea Nitrogen* 7 mg/dL (5-24); Calcium* 9.4 mg/dL (8.4-10.6); Creatinine* 0.6 mg/dL (0.5-1.5); Estimated Glomerular Filt Rate 113 ml/min; Total Protein* 7.1 g/dL (6.0-8.3); Triglycerides* 98 mg/dL (40-149)
[2022-05-09 14:28] LABS: Alanine Aminotransferase* 11 U/L (4-35); Alkaline Phosphatase* 124 U/L (40-150); HDL Cholesterol* 56 mg/dL (>=50); LDL Cholesterol Calculated 100 mg/dL (<100)
[2022-05-09 15:49] LABS: Glucose* 127 mg/dL (60-115)
[2022-05-09 15:52] LABS: Carbon Dioxide* 27 mmol/L (20-32)
== END 2022-05-09 08:28 | disposition home or self-care (01) ==
PROVIDERS: PCP Family Medicine; Visit Provider Family Medicine
DX: N91.2 Amenorrhea, unspecified (principal); K70.9 Alcoholic liver disease, unspecified; F41.9 Anxiety disorder, unspecified; E87.6 Hypokalemia; D64.9 Anemia, unspecified; Z13.6 Encounter for screening for cardiovascular disorders
CPT/HCPCS: 80053; 80061; 83001; 84443

== ENCOUNTER 2022-08-17 15:32 | Outpatient (CLI) | payer BC, SELFPAY ==
[2022-08-17 17:24] LABS: Albumin* 4.4 g/dL (3.3-5.0)
[2022-08-17 17:25] LABS: Chloride* 106 mmol/L (96-114); Potassium* 4.1 mmol/L (3.6-5.1); Sodium* 140 mmol/L (135-149)
[2022-08-17 17:27] LABS: Bilirubin Total* 0.5 mg/dL (0.1-1.5); Carbon Dioxide* 26 mmol/L (20-32); Creatinine* 0.5 mg/dL (0.5-1.5); Estimated Glomerular Filt Rate 118 ml/min
[2022-08-17 17:28] LABS: Alanine Aminotransferase* 15 U/L (4-35); Aspartate Amino Transferase* 27 U/L (12-35); Blood Urea Nitrogen* 10 mg/dL (5-24); Calcium* 9.1 mg/dL (8.4-10.6); Glucose* 104 mg/dL (60-115); Total Protein* 7.1 g/dL (6.0-8.3)
[2022-08-17 17:51] LABS: INR 1.11 (0.91-1.10)
[2022-08-17 18:41] LABS: Alkaline Phosphatase* 107 U/L (40-150)
== END 2022-08-17 15:33 | disposition home or self-care (01) ==
PROVIDERS: PCP Family Medicine; Visit Provider Family Medicine
DX: K70.31 Alcoholic cirrhosis of liver with ascites (principal); R53.83 Other fatigue
CPT/HCPCS: 80053; 85610

== ENCOUNTER 2022-10-12 14:50 | Outpatient (CLI) | payer BC, SELFPAY ==
--- NOTE | 2022-10-12 15:00 | CRLHL7_ITS ---
For Patients: As a result of the Century Cures Act, medical imaging exams and procedure reports are released immediately into your electronic medical record. You may view this report before your referring provider. If you have questions, please contact your health care provider. BILATERAL SCREENING MAMMOGRAM WITH COMPUTER-AIDED DETECTION TECHNIQUE: CC and MLO views were obtained. These mammographic images have been obtained using full-field digital technique. These mammographic images were interpreted with the benefit of computer-aided detection. COMPARISON FILM: Baseline. FINDINGS: The breasts are heterogeneously dense, which may obscure small masses IMPRESSION: There is no radiographic evidence for malignancy. ASSESSMENT: BI-RADS Category 1: Negative RECOMMENDATION: Routine screening mammogram in 1 year. A lay language report of this examination will be provided to the patient. Ashlyn Gomez M.D. Diagnostic/Breast Radiologist [email or web address] JAYLEEN/Dictated by: Ashlyn Gomez MD @ 10/15/2022 8:19:00 AM (Electronically Signed)
== END 2022-10-12 14:51 | disposition home or self-care (01) ==
LOC: MAMMO 14:51
PROVIDERS: PCP Family Medicine; Visit Provider Family Medicine
DX: Z12.31 Encounter for screening mammogram for malignant neoplasm of breast (principal); R92.2 Inconclusive mammogram
CPT/HCPCS: 77067

== ENCOUNTER 2023-06-11 10:30 | Outpatient (RCR) | payer BC, SELFPAY ==
--- NOTE | 2023-05-22 11:22 | URNOTE ---
Per [employer], Prior auth is not required for [place]([id number]). Ref #[id number]
[2023-05-24 10:37] VITALS: BP 129/86; PULSE 80; RESP 16; TEMP 36.4; O2SAT 99
[2023-05-24] MEDS: IRON SUCROSE COMPLEX 200 MG in 0.9 % SODIUM CHLORIDE 100 ml 100 ML 440 MG IVPB (10:50)
[2023-05-24] MEDS: 0.9 % SODIUM CHLORIDE 250 ml IV (10:51)
[2023-05-24] MEDS: SODIUM CHLORIDE 0.9 % (FLUSH) 10 ML SYRINGE IVF (10:51)
[2023-05-24 11:09] VITALS: BP 112/72; PULSE 65; RESP 16; TEMP 37.1; O2SAT 97
[2023-06-04 10:50] VITALS: BP 125/84; PULSE 66; RESP 16; TEMP 36.4; O2SAT 100
[2023-06-04] MEDS: IRON SUCROSE COMPLEX 200 MG in 0.9 % SODIUM CHLORIDE 100 ml 100 ML 440 MG IVPB (11:07)
[2023-06-04] MEDS: 0.9 % SODIUM CHLORIDE 250 ml IV (11:07)
[2023-06-04 11:34] VITALS: BP 117/65; PULSE 66; RESP 18; TEMP 36.6; O2SAT 100
[2023-06-04 12:05] VITALS: BP 140/77; PULSE 66; RESP 16; TEMP 36.7; O2SAT 100
[2023-06-06 10:36] VITALS: BP 128/81; PULSE 75; RESP 16; TEMP 36.6; O2SAT 100
[2023-06-06] MEDS: IRON SUCROSE COMPLEX 200 MG in 0.9 % SODIUM CHLORIDE 100 ml 100 ML 440 MG IVPB (11:10)
[2023-06-06] MEDS: SODIUM CHLORIDE 0.9 % (FLUSH) 10 ML SYRINGE IVF (11:10)
[2023-06-06] MEDS: 0.9 % SODIUM CHLORIDE 250 ml IV (11:11)
[2023-06-06 12:00] VITALS: BP 140/84; PULSE 75; RESP 15; TEMP 36.1; O2SAT 95
[2023-06-11 10:42] VITALS: BP 133/79; PULSE 78; RESP 16; TEMP 36.1; O2SAT 100
[2023-06-11] MEDS: SODIUM CHLORIDE 0.9 % (FLUSH) 10 ML SYRINGE IVF (11:00)
[2023-06-11] MEDS: 0.9 % SODIUM CHLORIDE 250 ml IV (11:00)
[2023-06-11] MEDS: IRON SUCROSE COMPLEX 200 MG in 0.9 % SODIUM CHLORIDE 100 ml 100 ML 440 MG IVPB (11:08)
[2023-06-11 11:30] VITALS: BP 131/74; PULSE 66; RESP 16; TEMP 36.4; O2SAT 100
[2023-06-11 12:04] VITALS: BP 136/79; PULSE 66; RESP 18; O2SAT 100
== END 2023-11-20 23:59 | disposition home or self-care (01) ==
LOC: CCIC 10:30
PROVIDERS: PCP Family Medicine; Referring Provider Family Medicine; Visit Provider Internal Medicine Hematology & Oncology
DX: D50.9 Iron deficiency anemia, unspecified (principal)
CPT/HCPCS: 96365; 96374; J1756; J7050

== ENCOUNTER 2024-01-15 10:14 | Outpatient (CLI) | payer BC, SELFPAY | END 2024-01-15 10:15 | disposition home or self-care (01) | PROVIDERS: PCP Family Medicine; Visit Provider Family Medicine | DX: R53.83 Other fatigue (principal); E55.9 Vitamin D deficiency, unspecified; E87.6 Hypokalemia; E88.09 Other disorders of plasma-protein metabolism, not elsewhere classified; D64.9 Anemia, unspecified; K76.0 Fatty (change of) liver, not elsewhere classified; Z13.6 Encounter for screening for cardiovascular disorders | CPT/HCPCS: 80053; 80061; 84443 ==